=== PATIENT | male | born 1945 | race Caucasian/White ===

== ENCOUNTER 2018-03-27 18:15 | Inpatient (IN) ==
--- NOTE | 2018-03-27 18:35 | Emergency Department Note ---
Addendum entered and electronically signed by Suhail Balderrama DO 03/27/18 20:29: Posterior and stirrup splint placed of new acute subacute ankle fracture. Vascular intact. Original Note: Disposition Clinical Impression: Neuropathy Falls Qualifiers: Encounter type: initial encounter Qualified Code(s): W19.XXXA - Unspecified fall, initial encounter Ankle pain, right Qualifiers: Chronicity: acute Qualified Code(s): M25.571 - Pain in right ankle and joints of right foot Disposition: Admitted As Inpatient Condition: Fair Referrals: Trey Ricketts Jr, MD [Primary Care Provider] - Forms: ED Satisfaction Letter Time of Disposition: 20:11 General Adult HPI - General Chief complaint: ED Extremity Problem,Nontraumatic Stated complaint: Weakness Walking Time Seen by Provider: 03/27/18 18:25 Source: patient, EMS Mode of arrival: ambulatory Limitations: no limitations Nursing Notes Reviewed: Yes Vital Signs Reviewed: Yes - History of Present Illness HPI Narrative: 73-year-old male with a history of hypertension, hyper lipidemia, neuropathy pr esents for evaluation of weakness of the legs with recurrent falls. Patient presents via EMS. Patient arrives from home. EMS reported the patient's had progressive weakness of the lower extremity. Patient's had recurrent falls. Does recall a fall a month ago at [facility] where he fractured his right ankle. Patient's ankle fracture was nonoperative. Since then the patient's been having home PT as well as assistance with family nurse however the patient continues to have recurrent falls is feeling weak. Patient notes neuropathy of his lower extremities primarily distal to the ankle. Patient's also had increasing pain of the right lower extremity. Patient was given a prescription of hydrocodone by his orthopedic doctor yesterday. Patient denies any cough shortness of breath chest pain abdominal pain or nausea vomiting. Patient is on 81 aspirin. Family at bedside states that he fell twice last night. No LOC. Family states that he is continuing to decline. Patient typically ambulates with assistance of a walker. Patient also states he has a history of abdominal aneurysm is followed by vascular here. Pain Scale: 0 - Related Data Home Medications Medication Instructions Recorded Confirmed Aspirin [Lo-Dose Aspirin EC] 05/19/17 Gabapentin [Neurontin] 05/19/17 Hydrochlorothiazide 05/19/17 Klor-Con 05/19/17 Multivitamin with Minerals 05/19/17 Simvastatin [Zocor] 05/19/17 Toprol Xl 05/19/17 Previous Rx's Medication Instructions Recorded Fluticasone Propionate Nasal 120 spray NS DAILY #1 bottle 06/02/17 [Flonase] Loratadine/Pseudophed (12 HR) 1 each PO BID #20 tab.er.[id number] 06/02/17 [Claritin D (12HR)] Allergies Allergy/AdvReac Type Severity Reaction Status Date / Time TETANUS Allergy See Uncoded 06/02/17 10:00 Comments All systems ED: reviewed and negative except as stated. Constitutional: Denies: fever Cardiovascular: Denies: chest pain Respiratory: Denies: cough, dyspnea, sputum production Gastrointestinal: Denies: abdominal pain, nausea, vomiting Musculoskeletal: Denies: back pain Neurological: Reports: weakness, numbness. Denies: headache Past Medical History - Past Medical History Source: patient Medical history: Reports: hyperlipidemia, hypertension, other Surgical history: Reports: non-contributory Psychiatric history: Reports: no psych history - Social History Smoking Status: Current every day smoker Smokeless Tobacco Status: No Alcohol use: Reports: none Drug use: Reports: none Physical Exam - General Limitations: no limitations General appearance: alert, in no apparent distress - Head Head exam: atraumatic, normocephalic, normal inspection - Eye Eye exam: Present: normal appearance, PERRL, EOMI - ENT ENT exam: normal exam, normal oropharynx, mucous membranes moist - Neck Neck exam: Present: normal inspection, full ROM. Absent: trachea midline - Chest Chest inspection: Present: normal inspection, symmetric chest wall rise - Respiratory Respiratory exam: Present: normal lung sounds bilaterally - Cardiovascular Cardiovascular exam: Present: regular rate, normal rhythm. Absent: systolic murmur - Abdominal Exam Abdominal exam: Present: soft, Non-Tender - Expanded Upper Extremity Exam Shoulder exam: Present: normal inspection, full ROM. Absent: tenderness Arm exam: Present: normal inspection, full ROM. Absent: tenderness Elbow exam: Present: normal inspection, full ROM. Absent: tenderness Hand exam: Present: normal inspection Vascular exam: Normal: capillary refill, radial pulse - Expanded Lower Extremity Exam Hip/Pelvis exam: Present: normal inspection. Absent: tenderness Upper leg exam: Present: normal inspection. Absent: tenderness Knee exam: Present: normal inspection. Absent: tenderness Ankle exam: Present: tenderness, swelling, ecchymosis. Absent: deformity Foot/toe exam: Present: tenderness, swelling, ecchymosis Neurovascular/Tendon exam: Present: normal capillary refill. Absent: pulse def icit - Back Exam Back exam: Present: normal inspection. Absent: tenderness - Neurological Exam Neurological exam: Present: alert, oriented X3, CN II-XII intact - Expanded Neurological Exam Patient oriented to: Present: person, place, time Speech: Present: fluid speech Cranial nerves: EOM function (II, III, IV, ): Normal, facial sensation (V): Normal, facial palsy (VII): Normal, spinal accessory function (XI): Normal, tongue deviation (XII): Normal Motor strength - LUE: 5/5 Motor strength - RUE: 5/5 Motor strength - LLE: 5/5 Motor strength - RLE: 5/5 Sensory exam lower extremity: light touch: Abnormal Left, Abnormal Right Coma Scale Eye Opening: Spontaneous Coma Scale Motor Response: Obeys Commands Coma Scale Verbal Response: Oriented Coma Scale Total: 15 - Skin Skin exam: Present: warm, dry, intact, normal color Course Course Narrative: Patient seen and examined. Patient will get basic labs, EKG, head CT, basic imaging. Disposition pending. - Reevaluation(s) Reevaluation #1: Patient presents for concerns of weakness of the lower extremities neuropathy and recurrent falls. Patient denies any LOC. Patient's aspirin. On exam the patient's resting currently no complaints. Family is concerned because he is having recurrent falls at home. Does have home PT but states that is not improving the symptoms. Patient's states that they did call 911 the past 24 hours due to his falls. States that she can no longer help lift him after he falls. Patient does and bili with a sense of a walker but is not able to take care of his activities of daily living. Given his history is well as recurrent falls. Patient is unsafe for discharge and would best be admitted for formal PT OT evaluation and discharge planning. Patient would likely need inpatient rehabilitation services as the family feels they are having a difficult time caring for him and his current state of health. Patient did get baseline screening evaluation with a head CT which was unremarkable chest x-ray ankle x- ray. Consult was placed in the computer given the acute subacute nature the p atient's right ankle fracture. Patient's recurrent falls likely secondary to his debilitation from his ankle fracture. Time: 20:02 Reevaluation #2: Discussed the case with the patient's family who verbalized that they feel that the patient is unsafe to take care of himself at home. Family also does not feel they can take care of him at home. Time: 20:04 Vital Signs Temperature 99.4 F 03/27/18 18:17 Pulse Rate 90 03/27/18 18:17 Respiratory Rate 20 03/27/18 18:17 Blood Pressure 175/80 03/27/18 18:17 O2 Sat by Pulse Oximetry 97 03/27/18 18:17 Temperature 99.4 F 03/27/18 18:17 Pulse Rate 78 03/27/18 19:33 Respiratory Rate 20 03/27/18 19:33 Blood Pressure 147/74 03/27/18 19:33 O2 Sat by Pulse Oximetry 97 03/27/18 19:33 Oxygen Delivery Oxygen Delivery Room Air Medical Decision Making - MDM Narrative Medical decision making narrative: Patient presented for concerns of generalized lower be weakness and recurrent falls. Patient does have acute as well as subacute fracture. Patient is at risk for decompensation a recurrent falls at home. Patient will be admitted to the hospital service. Ortho consulted. Patient family are agreeable with this plan of care. - Lab Data Lab results reviewed: Yes I reviewed the patient's lab results. Result diagrams: 03/27/18 18:36 03/27/18 18:36 Lab Results 03/27/18 03/27/18 Range/Units 18:36 18:36 WBC 12.4 H (4.3-11.1) K/mcL RBC 4.31 (4.19-5.50) M/mcL Hgb 13.7 (12.9-16.9) g/dL Hct 42.0 (37.5-50.1) % MCV 97.4 (83.0-100.0) fL MCH 31.8 (28.0-33.3) pg MCHC 32.6 (31.6-35.5) g/dL RDW 13.2 (11.5-14.5) % Plt Count 202 (140-400) K/mcL MPV 10.7 (9.4-12.4) fL Immature Gran % 0.4 (0-4) % Seg Neutrophils % 69.2 % Lymphocytes % 17.3 % Monocytes % 11.0 % Eosinophils % 1.9 % Basophils % 0.2 % Neutrophils # 8.6 (1.6-8.9) K/mcL Lymphocytes # 2.1 (0.6-4.6) K/mcL Monocytes # 1.4 H (0.0-1.3) K/mcL Eosinophils # 0.2 (0.0-0.6) K/mcL Basophils # 0.0 (0.0-0.2) K/mcL Sodium 139 (136-145) mEq/L Potassium 4.1 (3.5-5.1) mEq/L Chloride 106 (98-107) mEq/L Carbon Dioxide 28 (23-29) mEq/L BUN 17 (8-23) mg/dL Creatinine 1.40 H (0.70-1.30) mg/dL Est GFR ( Amer) > 60 (> 60) Est GFR (Non-Af Amer) 50 L (> 60) BUN/Creatinine Ratio 12 (6-26) Glucose 145 H (70-105) mg/dL Calculated Osmolality 292 (280-300) Calcium 9.1 (8.6-10.3) mg/dL - Radiology Data Radiology results reviewed: Yes I reviewed the patient's radiology results. Vital Signs Temperature 99.4 F 03/27/18 18:17 Pulse Rate 90 03/27/18 18:17 Respiratory Rate 20 03/27/18 18:17 Blood Pressure 175/80 03/27/18 18:17 O2 Sat by Pulse Oximetry 97 03/27/18 18:17 Temperature 99.4 F 03/27/18 18:17 Pulse Rate 78 03/27/18 19:33 Respiratory Rate 20 03/27/18 19:33 Blood Pressure 147/74 03/27/18 19:33 O2 Sat by Pulse Oximetry 97 03/27/18 19:33 Oxygen Delivery Oxygen Delivery Room Air Chest X-Ray 03/27/18 18:30 IMPRESSION: No acute abnormality. D/ / Bony Naylor MD / Bony Naylor MD Interpreting Provider: Bony Naylor MD Ankle X-Ray 03/27/18 18:31 IMPRESSION: 1. New acute-subacute transverse medial malleolar fracture 2. Subacute oblique distal fibular fracture, similar to prior exam D/ / Bony Naylor MD / Bony Naylor MD Interpreting Provider: Bony Naylor MD Head CT 03/27/18 18:31 IMPRESSION: No acute intracranial abnormality. D/ / Bony Naylor MD / Bony Naylor MD Interpreting Provider: Bony Naylor MD - EKG Data EKG #1 EKG attestation: Yes I reviewed and interpreted this EKG. EKG shows normal: sinus rhythm Rate: normal Rhythm: NSR [place]/QRS: normal When compared to previous EKG there are: no significant changes Interpretation: no acute changes, nonspecific ST-T wave changes S.B.Lilliam - Elidia.Candido Situation: Demographics Background: Presenting Complaint Assessment: Vital Signs, Course and respsone to treatment, Patient/Family Expectation Recommendation: Barrier(s) to disposition, Recommendation based on pending studies, treatments, or consults S.B.A.RNidia Report Given to: Dr. Caden Garcia Time: 20:10
--- NOTE | 2018-03-27 18:45 | Emergency Department Note ---
Disposition Clinical Impression: Falls, Neuropathy, Ankle pain, right Disposition: Admitted As Inpatient Condition: Fair General Adult HPI - General Chief complaint: ED Extremity Problem,Nontraumatic Stated complaint: Weakness Walking Time Seen by Provider: 03/27/18 18:25 Source: patient, EMS Mode of arrival: ambulatory Limitations: no limitations - History of Present Illness Pain Scale: 0 - Related Data Home Medications Medication Instructions Recorded Confirmed RX: Aspirin [Lo-Dose Aspirin EC] 81 mg PO DAILY 05/19/17 03/27/18 RX: Gabapentin [Neurontin] 1,200 mg PO TID 05/19/17 03/27/18 RX: Simvastatin [Zocor] 80 mg PO HS 05/19/17 03/27/18 Metoprolol Succinate 50 mg PO DAILY 03/27/18 03/27/18 Potassium Chloride [K-Tab ER] 20 meq PO DAILY 03/27/18 03/27/18 RX: hydroCHLOROthiazide 25 mg PO DAILY 03/27/18 03/27/18 [Hydrochlorothiazide] Allergies Allergy/AdvReac Type Severity Reaction Status Date / Time TETANUS Allergy See Uncoded 06/02/17 10:00 Comments Constitutional: Denies: fever Cardiovascular: Denies: chest pain Respiratory: Denies: cough, dyspnea, sputum production Gastrointestinal: Denies: abdominal pain, nausea, vomiting Musculoskeletal: Denies: back pain Neurological: Reports: weakness, numbness. Denies: headache Past Medical History - Past Medical History Medical history: Reports: hyperlipidemia, hypertension, other Surgical history: Reports: non-contributory Psychiatric history: Reports: no psych history - Social History Smoking Status: Current every day smoker Smokeless Tobacco Status: No Alcohol use: Reports: none Drug use: Reports: none Physical Exam - General Limitations: no limitations General appearance: alert, in no apparent distress Course Vital Signs Temperature 99.4 F 03/27/18 18:17 Pulse Rate 90 03/27/18 18:17 Respiratory Rate 20 03/27/18 18:17 Blood Pressure 175/80 03/27/18 18:17 O2 Sat by Pulse Oximetry 97 03/27/18 18:17 Temperature 98 F 03/27/18 21:05 Pulse Rate 83 03/27/18 21:05 Respiratory Rate 16 03/27/18 21:05 Blood Pressure 142/83 03/27/18 21:05 O2 Sat by Pulse Oximetry 93 03/27/18 21:05 Oxygen Delivery Oxygen Delivery Room Air Medical Decision Making - Lab Data Result diagrams: 03/27/18 18:36 03/27/18 18:36 Lab Results 03/27/18 03/27/18 Range/Units 18:36 18:36 WBC 12.4 H (4.3-11.1) K/mcL RBC 4.31 (4.19-5.50) M/mcL Hgb 13.7 (12.9-16.9) g/dL Hct 42.0 (37.5-50.1) % MCV 97.4 (83.0-100.0) fL MCH 31.8 (28.0-33.3) pg MCHC 32.6 (31.6-35.5) g/dL RDW 13.2 (11.5-14.5) % Plt Count 202 (140-400) K/mcL MPV 10.7 (9.4-12.4) fL Immature Gran % 0.4 (0-4) % Seg Neutrophils % 69.2 % Lymphocytes % 17.3 % Monocytes % 11.0 % Eosinophils % 1.9 % Basophils % 0.2 % Neutrophils # 8.6 (1.6-8.9) K/mcL Lymphocytes # 2.1 (0.6-4.6) K/mcL Monocytes # 1.4 H (0.0-1.3) K/mcL Eosinophils # 0.2 (0.0-0.6) K/mcL Basophils # 0.0 (0.0-0.2) K/mcL Sodium 139 (136-145) mEq/L Potassium 4.1 (3.5-5.1) mEq/L Chloride 106 (98-107) mEq/L Carbon Dioxide 28 (23-29) mEq/L BUN 17 (8-23) mg/dL Creatinine 1.40 H (0.70-1.30) mg/dL Est GFR ( Amer) > 60 (> 60) Est GFR (Non-Af Amer) 50 L (> 60) BUN/Creatinine Ratio 12 (6-26) Glucose 145 H (70-105) mg/dL Calculated Osmolality 292 (280-300) Calcium 9.1 (8.6-10.3) mg/dL Attestation Statement - Attestation Attestation: I examined this patient and my medical decision-making was reviewed with the Resident Physician. I agree with the documented findings, disposition and treatment plan as described except to the extent set forth below. [id number] time provided Patient presents with fall. Unsteady on feet. He has a home therapist has been working with him. On exam the patient appears in no acute distress. Family bedside. Concern for progressive debility, falls
[2018-03-27 18:48] LABS: Basophils % 0.2 %; Eosinophils # 0.2 K/mcL (0.0-0.6); Eosinophils % 1.9 %; Hemoglobin 13.7 g/dL (12.9-16.9); Immature Granulocytes % 0.4 % (0-4); Lymphocytes # 2.1 K/mcL (0.6-4.6); Lymphocytes % 17.3 %; Mean Corpuscular HGB Conc 32.6 g/dL (31.6-35.5); Mean Corpuscular Hemoglobin 31.8 pg (28.0-33.3); Mean Corpuscular Volume 97.4 fL (83.0-100.0); Mean Platelet Volume 10.7 fL (9.4-12.4); Monocytes # 1.4 K/mcL (0.0-1.3); Neutrophils # 8.6 K/mcL (1.6-8.9); Platelet Count 202 K/mcL (140-400); Red Blood Count 4.31 M/mcL (4.19-5.50); Red Cell Distribution Width 13.2 % (11.5-14.5); Segmented Neutrophils % 69.2 %
[2018-03-27 19:10] LABS: BUN/Creatinine Ratio 12 (6-26); Blood Urea Nitrogen 17 mg/dL (8-23); Calcium 9.1 mg/dL (8.6-10.3); Carbon Dioxide 28 mEq/L (23-29); Chloride 106 mEq/L (98-107); Glucose 145 mg/dL (70-105); Osmolality,Calculated 292 (280-300); Potassium 4.1 mEq/L (3.5-5.1); Sodium 139 mEq/L (136-145); eGFR For Non-African Americans 50 (> 60)
[2018-03-27] MEDS ORDERED: traMADol 50 MG TABLET PO PRN (20:36)
[2018-03-27] MEDS ORDERED: Naloxone 0.4 MG/ML INJ IVP PRN (20:36)
[2018-03-27] MEDS ORDERED: Acetaminophen 325 MG TABLET PO PRN (20:36)
[2018-03-27] MEDS ORDERED: *HR* OxyCODONE Immed Rel 5 MG TABLET PO PRN (20:36)
[2018-03-27] MEDS ORDERED: Ipratropium/Albuterol Neb 3 ML IH PRN (20:40)
[2018-03-27] MEDS ORDERED: Ringers Solution, Lactated 1,000 ML IVC SCH (20:45)
--- NOTE | 2018-03-27 20:53 | Internal Med History&Physical ---
Date of Encounter: 03/27/18 Time of Encounter: 20:49 Internal Medicine - H&P: HPI Chief complaint: falls Admitted From: Home Plans for Post Hospital Care: Transfer Inp Rehab Fac History of present illness: Arden Tran is a 73-year-old male with chronic smoker with hypertension, hyperlipidemia and peripheral neuropathy who states that around Thanks period he had a fall while getting up from a seated position and walking to the bathroom with surrounding objects being used for support. He was taken to an urgent care center where he was found to have a distal fibular fracture. He was plugged in with orthopedics as an outpatient where he was given a walking boot and told to not bear weight. He reported difficulty using the boots and uncontrolled pain so only yesterday he was given a prescription for hydrocodone/acetaminophen. Today he is brought in again after 2 mechanical falls in the past 24 hours with no LOC. In the ER he was seen clinically and hemodynamically stable. X-rays is reviewed by me independently shows thin mu acute to subacute transverse fracture in the medial malleolus that was not seen on x-ray dated 03/19/18 and persistence of the previous oblique distal fibular fracture which remains unchanged in alignment. He is now admitted for further care. At this time he has no acute complaints. He continues to smoke and states that occasionally has difficulty with breathing out but has never been diagnosed with any obstructive lung disease. Past Med Surg Social Fam HX - Past Medical History Medical history: hyperlipidemia, hypertension, other Additional medical history: neuropathy. 3-4cm abd aneurysm that is being monitored Psychiatric history: no psych history - Past Surgical History Surgical History: non-contributory Additional surgical history: sinus surgery. inguinal hernia. bone spurs. b/l lens implant - Social History Smoking Status: Current every day smoker Smokeless Tobacco Status: No Alcohol use: none Drug use: none Internal Medicine - H&P: Meds Aspirin [Lo-Dose Aspirin EC] 81 mg PO DAILY 05/19/17 [History] Gabapentin [Neurontin] 2 tab PO TID 05/19/17 [History] Simvastatin [Zocor] 80 mg PO HS 05/19/17 [History] Metoprolol Succinate 50 mg PO DAILY 03/27/18 [History] Potassium Chloride [K-Tab ER] 20 meq PO DAILY 03/27/18 [History] hydroCHLOROthiazide [Hydrochlorothiazide] 25 mg PO DAILY 03/27/18 [History] Allergy/AdvReac Type Severity Reaction Status Date / Time TETANUS Allergy See Uncoded 06/02/17 10:00 Comments All Systems PM: A 10-system review of systems was performed and is negative for pertinent findi ngs except as documented above in the HPI. Family history reviewed and found noncontributory. - Constitutional Vitals: Temp Pulse Resp BP Pulse Ox 99.4 F 78 20 147/74 97 03/27/18 18:17 03/27/18 19:33 03/27/18 19:33 03/27/18 19:33 03/27/18 19:33 Exam: Vitals: Reviewed General: Obese white male lying comfortably in bed in no acute distress. Skin: Multiple ecchymotic lesions on forearms and lower legs. HEENT: Moist mucous membranes. No conjunctivae pallor. Neck: No lymphadenopathy. No JVD. No carotid bruits. No palpable thyroid. Chest: Normal thoracic expansion. Normal breath sounds. Clear to auscultation. Heart: Normal S1 & S2; rhythmic. No rubs or murmurs. Abdomen: Non-distended, soft and non-tender to palpation. No peritoneal reaction. Extremities: 2+ pitting edema in both lower legs/feet with the right side larger than the left. 2cm ulceration on medial malleolus with tenderness to palpation in the same area. Feet warm and pulses are present. Decreased sensation. Right leg with hyperpigmentation. Neurological: Awake, alert and oriented to person, place and time. No focal d eficits. Psych: Affect appropriate. Internal Med - H&P Results - Labs CBC & Chem 7: 03/27/18 18:36 03/27/18 18:36 Labs: Short CBC 03/27/18 Range/Units 18:36 WBC 12.4 H (4.3-11.1) K/mcL Hgb 13.7 (12.9-16.9) g/dL Hct 42.0 (37.5-50.1) % Plt Count 202 (140-400) K/mcL Neutrophils # 8.6 (1.6-8.9) K/mcL BMP 03/27/18 18:36 Sodium 139 Potassium 4.1 Chloride 106 Carbon Dioxide 28 BUN 17 Creatinine 1.40 H Glucose 145 H Calcium 9.1 - Impressions ITS Impressions Chest X-Ray 03/27/18 18:30 IMPRESSION: No acute abnormality. D/ / Bony Naylor MD / Bony Naylor MD Interpreting Provider: Bony Naylor MD Ankle X-Ray 03/27/18 18:31 IMPRESSION: 1. New acute-subacute transverse medial malleolar fracture 2. Subacute oblique distal fibular fracture, similar to prior exam D/ / Bony Naylor MD / Bony Naylor MD Interpreting Provider: oBny Naylor MD Head CT 03/27/18 18:31 IMPRESSION: No acute intracranial abnormality. D/ / Bony Naylor MD / Bony Naylor MD Interpreting Provider: Bony Naylor MD - Assessment and plan (1) Right malleolar fracture Current Visit: Yes Status: Acute Assessment and plan: Due to a more recent fall it appears. Podiatry has been consulted and he will be seen in the morning. For now leg elevation and no weight bearing. Pain control as needed. Qualifiers: Encounter type: initial encounter Fracture type: closed Qualified Code(s): S82.891A - Other fracture of right lower leg, initial encounter for closed fracture (2) Closed fibular fracture Current Visit: Yes Status: Acute Assessment and plan: Appears stable. Will need continued orthopedics follow up. Qualifiers: Encounter type: initial encounter Fibula location: distal Fracture morphology: unspecified fracture morphology Laterality: right Qualified Code(s): S82.831A - Other fracture of upper and lower end of right fibula, initial encounter for closed fracture (3) HTN (hypertension) Current Visit: Yes Status: Acute Assessment and plan: Well controlled. Will resume home meds. Qualifiers: Hypertension type: essential hypertension Qualified Code(s): I10 - Essential (primary) hypertension (4) CHRIS (acute kidney injury) Current Visit: Yes Status: Acute Assessment and plan: Unclear etiology; no report of poor oral intake or clinical signs of dehydration. Could it be associated with NSAIDs? Will fluid resuscitate to assess reponse to 1L and recheck. Avoid NSAIDs and hold diuretic for tonight. (5) Smoker Current Visit: Yes Status: Acute Assessment and plan: Counseled and educated accordingly. Nicotine patch provided. Duonebs prn ordered given longstanding history. (6) Falls Current Visit: Yes Status: Acute Assessment and plan: He will benefit from PT assessment after podiatric evaluation and may require inpatient rehabilitation. Qualifiers: Encounter type: initial encounter Qualified Code(s): W19.XXXA - Unspecified fall, initial encounter (7) Neuropathy Current Visit: Yes Status: Acute Assessment and plan: Continue gabapentin at home doses. (8) DVT prophylaxis Current Visit: Yes Status: Acute Assessment and plan: SubQ heparin ordered. - Time Spent With Patient Total time spent is greater than 50% in coordination of care (as documented) at patient's floor/unit and/or counseling patient: Greater than 35 minutes
[2018-03-27] MEDS ORDERED: Nicotine 21 MG PATCH.TD24 TD SCH (21:00)
[2018-03-27] MEDS: Gabapentin 400 MG CAPSULE PO SCH (21:18)
[2018-03-27] MEDS: *HR* Heparin 5,000 UNIT/ML VIAL SQ SCH (21:20)
[2018-03-28 04:02] LABS: Basophils % 0.2 %; Eosinophils # 0.3 K/mcL (0.0-0.6); Eosinophils % 3.6 %; Hematocrit 38.8 % (37.5-50.1); Hemoglobin 12.7 g/dL (12.9-16.9); Immature Granulocytes % 0.1 % (0-4); Lymphocytes # 2.4 K/mcL (0.6-4.6); Lymphocytes % 27.1 %; Mean Corpuscular HGB Conc 32.7 g/dL (31.6-35.5); Mean Corpuscular Hemoglobin 31.8 pg (28.0-33.3); Mean Corpuscular Volume 97.2 fL (83.0-100.0); Mean Platelet Volume 10.6 fL (9.4-12.4); Monocytes # 0.8 K/mcL (0.0-1.3); Monocytes % 9.2 %; Neutrophils # 5.3 K/mcL (1.6-8.9); Platelet Count 168 K/mcL (140-400); Red Blood Count 3.99 M/mcL (4.19-5.50); Red Cell Distribution Width 13.3 % (11.5-14.5); Segmented Neutrophils % 59.8 %
[2018-03-28 04:09] LABS: Prothrombin Time 10.9 Seconds (9.4-12.1)
[2018-03-28 04:11] LABS: Activated Partial Thrombo Time 27.6 Seconds (26.0-36.0)
[2018-03-28 04:20] LABS: Alanine Aminotransferase 12 Units/L (7-52); Albumin 3.5 g/dL (3.5-5.7); Alkaline Phosphatase 55 Units/L (34-104); Aspartate Amino Transferase 15 Units/L (13-39); BUN/Creatinine Ratio 16 (6-26); Bilirubin,Direct 0.1 mg/dL (0.0-0.2); Bilirubin,Indirect 0.4 mg/dL (0.0-1.2); Bilirubin,Total 0.5 mg/dL (0.3-1.0); Blood Urea Nitrogen 15 mg/dL (8-23); Calcium 8.5 mg/dL (8.6-10.3); Carbon Dioxide 27 mEq/L (23-29); Chloride 109 mEq/L (98-107); Glucose 112 mg/dL (70-105); Osmolality,Calculated 292 (280-300); Potassium 3.8 mEq/L (3.5-5.1); Sodium 140 mEq/L (136-145); Total Protein 5.7 g/dL (6.4-8.9); eGFR For Non-African Americans > 60 (> 60)
[2018-03-28 04:21] LABS: Albumin/Globulin Ratio 1.6 (1.1-2.2); Globulin 2.2 g/dL (2.4-3.5)
[2018-03-28] MEDS: *HR* Heparin 5,000 UNIT/ML VIAL SQ SCH ×2 (05:36→23:27)
--- NOTE | 2018-03-28 06:15 | Podiatry Consult Note ---
Date of Encounter: 03/28/18 Time of Encounter: 05:30 Assessment and Plan (1) Fracture of ankle, bimalleolar, right, closed Current visit: Yes Status: Acute patient had trouble remaining non-wb on his own. fallen multiple times. sustained new medial malleolar fracture I had a thorough review with the patient regarding his condition, my findings and treatment options. Disussed xrays. Patient is going to proceed with ORIF of the right ankle fracture. Nature of procedure, risks vs benefits, potential complications and consequences of surgery and his condition discussed at length including but not limited to infection, bleeding, swelling, numbness, tingling, nerve damage, delayed or non-healing of bone, painful hardware, lack of procedure to product desired outcome, arthritis, heart attack, blood clot, pulomonary embolism, , need for further surgery, etc. He understood that he will have arthritis and may always have swelling due to his injury. Discussed course of recovery and need to remain non-wb for 8 weeks or longer following the procedure. All of his questions were answered and the informed consent was signed. We discussed recovery and patient in agreement to try to go to [facility]. [facility] for surgery. To OR later today for ORIF of the right ankle. NPO. Qualifiers: Encounter type: initial encounter Qualified Code(s): S82.841A - Displaced bimalleolar fracture of right lower leg, initial encounter for closed fracture History of Present Illness HPI: Mr. Tran is a 73 year old male with neuropathy reports multiple falls since Thanksgiving injuring the right ankle. He says he saw Dr. Sousa on [facility] for his right ankle. He says he was put in a boot and told to stay off it to allow the fracture to heal. He says he was unable to stay off it and had a difficult time. He says he has fallen and twisted the foot multiple times. He says his right ankle is not getting any better and continues to swell. He came to the ER yesterday and was found to have a new medial malleolar fracture. He denies being diabetic. He is an active smoker. Patient admitted overnight and podiatry consulted for evaluation. Past Med Surg Social Fam HX - Past Medical History Medical history: hyperlipidemia, hypertension, other Additional medical history: neuropathy. 3-4cm abd aneurysm that is being monitored Psychiatric history: no psych history - Past Surgical History Surgical History: non-contributory Additional surgical history: sinus surgery. inguinal hernia. bone spurs. b/l lens implant - Social History Smoking Status: Current every day smoker Smokeless Tobacco Status: No Alcohol use: none Drug use: none - Family History Father Living Status: Cause of : CA Hx Family Cancer: Yes (Stomach) Sister Living Status: Cause of : "heart" Hx Family Cardiac Disorders: Yes Medications and Allergies Aspirin [Lo-Dose Aspirin EC] 81 mg PO DAILY 05/19/17 [History] Gabapentin [Neurontin] 1,200 mg PO TID 05/19/17 [History] Simvastatin [Zocor] 80 mg PO HS 05/19/17 [History] Metoprolol Succinate 50 mg PO DAILY 03/27/18 [History] Potassium Chloride [K-Tab ER] 20 meq PO DAILY 03/27/18 [History] hydroCHLOROthiazide [Hydrochlorothiazide] 25 mg PO DAILY 03/27/18 [History] Allergy/AdvReac Type Severity Reaction Status Date / Time TETANUS Allergy See Uncoded 06/02/17 10:00 Comments All Systems Reviewed: The remainder of the systems were reviewed and are negative - Constitutional Constitutional: no fever(s) - Cardiovascular Cardiovascular: no chest pain, no dyspnea - Respiratory Respiratory: no cough - Musculoskeletal Musculoskeletal: joint swelling, numbness Physical Exam - Constitutional Vitals: Temp Pulse Resp BP Pulse Ox 98.4 F 86 16 168/83 91 03/28/18 03:29 03/28/18 03:29 03/27/18 23:36 03/28/18 03:29 03/28/18 03:29 Exam: well developed and nourished male AO x 3. in no acute distress CFT intact to all digits of the right foot. right foot is warm to touch. mild edema. no fracture blisters no calf pain with squeeze b/l. no pain with palpation of fracture sites. absent sensation to touch b/l. xrays: bimalleolar ankle fracture with decreased tib-fib overlap Results - Labs Result Diagrams: 03/28/18 03:40 03/28/18 03:40 Labs: Abnormal lab results RBC 3.99 M/mcL (4.19-5.50) L 03/28/18 03:40 Hgb 12.7 g/dL (12.9-16.9) L 03/28/18 03:40 Chloride 109 mEq/L (98-107) H 03/28/18 03:40 Glucose 112 mg/dL (70-105) H 03/28/18 03:40 Calcium 8.5 mg/dL (8.6-10.3) L 03/28/18 03:40 Serum Total Protein 5.7 g/dL (6.4-8.9) L 03/28/18 03:40 Globulin 2.2 g/dL (2.4-3.5) L 03/28/18 03:40 H & H 03/27/18 03/28/18 Range/Units 18:36 03:40 Hgb 13.7 12.7 L (12.9-16.9) g/dL Hct 42.0 38.8 (37.5-50.1) % All other labs normal. Consult Discharge Plan - Plan Referrals: Trey Ricketts Jr, MD [Primary Care Provider] -
[2018-03-28] MEDS ORDERED: hydroCHLOROthiazide 25 MG TABLET PO SCH (07:00)
[2018-03-28] MEDS ORDERED: Metoprolol XL (24 HR) Succ 50 MG TAB.ER.24H PO SCH (07:00)
[2018-03-28] MEDS ORDERED: Aspirin Enteric Coated 81 MG Tablet PO SCH (09:00)
[2018-03-28] MEDS: Gabapentin 400 MG CAPSULE PO SCH ×3 (09:37→20:21)
--- NOTE | 2018-03-28 11:05 | Anesthesia Evaluation PreOp ---
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 History: Other (jennifer LE peripheral neuropathy) Other Medical History: Denies Any Significant HX Anesthesia History: No Prior Anesthetic Complications, Past Anesthesia (sinus, ing hernia repair, jennifer lens implant) Alcohol Use: none Drug use: none Medications and Allergies Aspirin [Lo-Dose Aspirin EC] 81 mg PO DAILY 05/19/17 [History] Gabapentin [Neurontin] 1,200 mg PO TID 05/19/17 [History] Simvastatin [Zocor] 80 mg PO HS 05/19/17 [History] Metoprolol Succinate 50 mg PO DAILY 03/27/18 [History] Potassium Chloride [K-Tab ER] 20 meq PO DAILY 03/27/18 [History] hydroCHLOROthiazide [Hydrochlorothiazide] 25 mg PO DAILY 03/27/18 [History] Latanoprost [Xalatan] 1 drop BOTH EYES HS 03/28/18 [History] Multivit-Minerals/FA/Lycopene [Eq One Daily Men's Tablet] 1 tab PO DAILY 03/28/18 [History] Allergy/AdvReac Type Severity Reaction Status Date / Time TETANUS Allergy See Uncoded 03/28/18 10:05 Comments - Meds/Allergy Pre-op Review Medications Reviewed: Yes Allergies Reviewed: Yes Beta Blockers on Current Med List: Yes If Beta Blockers taken, Date/Time (Last Dose taken): 7:04am today Anesthesia Results - Labs 03/28/18 03:40 03/28/18 03:40 Laboratory Tests 03/28/18 03:40 PT 10.9 INR 1.0 APTT 27.6 - Imaging EKG: image reviewed (03/28/17 SR) Anesthesia Exam Vital Signs/O2 Sat, Most Current Temp Pulse Resp BP Pulse Ox 98.4 F 80 16 178/89 91 03/28/18 10:19 03/28/18 10:19 03/28/18 10:19 03/28/18 10:19 03/28/18 10:19 Height: 1.75m Weight: 118kg NPO (# of Hours): >8 - HEENT Pupil (Motor): Pupils equal, EOMI - CHILD GUIDANCE COUNSELOR LOC: Oriented CHILD GUIDANCE COUNSELOR Motor: Normal RUE, Normal LUE, Normal RLE, Normal LLE, Normal Face CHILD GUIDANCE COUNSELOR Sensory: Normal: RUE, LUE, RLE, LLE, Face - Cardiac Rhythm: Regular - Pulmonary Breath Sounds: bilateral Clear Respiratory Effort: Symmetrical Anesthesia Assess/Plan ASA Score: 3 Level of consciousness: Cooperative Anesthetic Plan: General Reason for No Neuroaxial/Regional Block: Other (pt has jennifer LE neuropathy) Monitoring Plan: Standard Monitors Recovery Plan: PACU
[2018-03-28] MEDS ORDERED: Bupivacaine/EPI 1:200k 0.25%PF 30 ML VIAL ONE (11:38)
[2018-03-28] MEDS ORDERED: Lidocaine -MPF 2% 2 ML VIAL ONE (11:55)
[2018-03-28] MEDS ORDERED: *HR* FentaNYL (PF) 100 MCG/2 ML VIAL ONE (11:55)
[2018-03-28] MEDS ORDERED: Ondansetron 4 MG/2 ML VIAL ONE (11:55)
[2018-03-28] MEDS ORDERED: Dexamethasone 4 MG/ML VIAL ONE (11:55)
[2018-03-28] MEDS ORDERED: *HR* Propofol 200 MG/20 ML VIAL IVP ONE (11:55)
[2018-03-28] MEDS ORDERED: *HR* Midazolam HCl 2 MG/2 ML VIAL ONE (11:55)
[2018-03-28] MEDS ORDERED: *HR* Promethazine 25 MG/ML VIAL IVP PRN ×2 (12:00→14:52)
[2018-03-28] MEDS ORDERED: *HR* OxyCODONE Immed Rel 5 MG TABLET PO PRN ×2 (12:00→14:52)
[2018-03-28] MEDS ORDERED: Ondansetron 4 MG/2 ML VIAL IVP ONE (12:00)
[2018-03-28] MEDS ORDERED: *HR* Meperidine 25 MG/ML SYRINGE IVP PRN (12:00)
[2018-03-28] MEDS ORDERED: *HR* HYDROmorphone (PF) 1 MG/ML SYRINGE IVP PRN (12:00)
[2018-03-28] MEDS ORDERED: Albuterol 2.5 MG/3 ML NEBULIZER IH ONE ×3 (12:00→14:52)
[2018-03-28] MEDS ORDERED: Acetaminophen IV 1,000 MG/100 ML INFUS..BTL ONE (12:33)
[2018-03-28] MEDS ORDERED: *HR* PHENYLEPHRINE 1,000 MCG/10 ML SYRINGE IVP ONE (12:35)
[2018-03-28] MEDS ORDERED: *HR* HYDROMORPHONE 2 MG/ML VIAL ONE (13:14)
--- NOTE | 2018-03-28 13:21 | Internal Med Progress Note ---
Hospitalist Progress Note - Encounter Date of Encounter: 03/28/18 Time of Encounter: 09:00 - Subjective Interval History: Patient was seen and examined earlier this a.m. at bedside. He currently complains of some right leg pain however no other complaints - Exam Vitals: Temp Pulse Resp BP Pulse Ox 98.4 F 80 16 178/89 91 03/28/18 10:19 03/28/18 10:19 03/28/18 10:19 03/28/18 10:19 03/28/18 10:19 Exam: Vitals: Reviewed General: Obese white male lying comfortably in bed in no acute distress. Skin: Multiple ecchymotic lesions on forearms and lower legs. HEENT: Moist mucous membranes. No conjunctivae pallor. Neck: No lymphadenopathy. No JVD. No carotid bruits. No palpable thyroid. Chest: Normal thoracic expansion. Normal breath sounds. Clear to auscultation. Heart: Normal S1 & S2; rhythmic. No rubs or murmurs. Abdomen: Non-distended, soft and non-tender to palpation. No peritoneal reaction. Extremities: 2+ pitting edema in both lower legs/feet with the right side larger than the left. 2cm ulceration on medial malleolus with tenderness to palpation in the same area. Feet warm and pulses are present. Decreased sensation. Right leg with hyperpigmentation. Neurological: Awake, alert and oriented to person, place and time. No focal deficits. Psych: Affect appropriate. - Assessment and Plan (1) Falls Current Visit: Yes Status: Acute Assessment and Plan: He will benefit from PT assessment after podiatric evaluation and may require inpatient rehabilitation 03/28/2018 Patient has experienced frequent falls secondary to difficulty ambulating from previous distal fibular fracture. He was advised to be nonweightbearing however he had difficulty using a boot and experienced 2 mechanical falls-he appears to have a subacute transverse fracture in the medial malleolus. We will consult PT he will require further rehabilitation postsurgery (2) Neuropathy Current Visit: Yes Status: Acute Assessment and Plan: Continue gabapentin at home doses 03/28/2018 Continue with gabapentin PT OT consulted. (3) Right malleolar fracture Current Visit: Yes Status: Acute Assessment and Plan: Due to a more recent fall it appears. Podiatry has been consulted and he will be seen in the morning. For now leg elevation and no weight bearing. Pain control as needed. 03/28/2018 Podiatry has been consulted -patient is to undergo ORIF of right ankle later today (4) Closed fibular fracture Current Visit: Yes Status: Acute Assessment and Plan: Appears stable. Will need continued orthopedics follow up. 03/28/2018 We will require orthopedic [id number] at this time (5) HTN (hypertension) Current Visit: Yes Status: Acute Assessment and Plan: Well controlled. Will resume home meds. 03/28/2018 Patient's blood pressure has been elevated this morning he has had some pain continue with pain management as well as hydralazine as needed. Continue with home medications (6) CHRIS (acute kidney injury) Current Visit: Yes Status: Acute Assessment and Plan: Unclear etiology; no report of poor oral intake or clinical signs of dehydration. Could it be associated with NSAIDs? Will fluid resuscitate to assess reponse to 1L and recheck. Avoid NSAIDs and hold diuretic for tonight. 03/28/2018 This seems to have resolved we will continue to monitor closely (7) Smoker Current Visit: Yes Status: Acute Assessment and Plan: Counseled and educated accordingly. Nicotine patch provided. Duonebs prn ordered given longstanding history. (8) DVT prophylaxis Current Visit: Yes Status: Acute Assessment and Plan: SubQ heparin ordered. - Time Spent with Patient Total time spent is greater than 50% in coordination of care (as documented) at patient's floor/unit and/or counseling patient: Internal Medicine: Result - Labs CBC & Chem 7: 03/28/18 03:40 03/28/18 03:40 Labs: Short CBC 03/27/18 03/28/18 Range/Units 18:36 03:40 WBC 12.4 H 8.8 (4.3-11.1) K/mcL Hgb 13.7 12.7 L (12.9-16.9) g/dL Hct 42.0 38.8 (37.5-50.1) % Plt Count 202 168 (140-400) K/mcL Neutrophils # 8.6 5.3 (1.6-8.9) K/mcL BMP 03/27/18 03/28/18 18:36 03:40 Sodium 139 140 Potassium 4.1 3.8 Chloride 106 109 H Carbon Dioxide 28 27 BUN 17 15 Creatinine 1.40 H 0.93 Glucose 145 H 112 H Calcium 9.1 8.5 L Liver Function 03/28/18 Range/Units 03:40 Total Bilirubin 0.5 (0.3-1.0) mg/dL Direct Bilirubin 0.1 (0.0-0.2) mg/dL AST 15 (13-39) Units/L ALT 12 (7-52) Units/L Alkaline Phosphatase 55 (34-104) Units/L Albumin 3.5 (3.5-5.7) g/dL - ABG Interpretation ABG results: PT/INR, D-dimer PT 10.9 Seconds (9.4-12.1) 03/28/18 03:40 - Impressions Impressions Chest X-Ray 03/27/18 18:30 IMPRESSION: No acute abnormality. D/ / Bony Naylor MD / Bony Naylor MD Interpreting Provider: Bony Naylor MD Ankle X-Ray 03/27/18 18:31 IMPRESSION: 1. New acute-subacute transverse medial malleolar fracture 2. Subacute oblique distal fibular fracture, similar to prior exam D/ / Bony Naylor MD / Bony Naylor MD Interpreting Provider: Bony Naylor MD Head CT 03/27/18 18:31 IMPRESSION: No acute intracranial abnormality. D/ / Bony Naylor MD / Bony Naylor MD Interpreting Provider: Bony Naylor MD Consult Discharge Plan - Plan Referrals: Trey Ricketts Jr, MD [Primary Care Provider] - (1) Falls Qualifiers: Encounter type: initial encounter Qualified Code(s): W19.XXXA - Unspecified fall, initial encounter (3) Right malleolar fracture Qualifiers: Encounter type: initial encounter Fracture type: closed Qualified Code(s): S82.891A - Other fracture of right lower leg, initial encounter for closed fracture (4) Closed fibular fracture Qualifiers: Encounter type: initial encounter Fibula location: distal Fracture morphology: unspecified fracture morphology Laterality: right Qualified Co de(s): S82.831A - Other fracture of upper and lower end of right fibula, initial encounter for closed fracture (5) HTN (hypertension) Qualifiers: Hypertension type: essential hypertension Qualified Code(s): I10 - Essential (primary) hypertension
--- NOTE | 2018-03-28 14:02 | Operative Note ---
Date of procedure: 03/28/18 Pre-op diagnosis: right bimalleolar ankle fracture Post-op diagnosis: same Procedure: ORIF right bimalleolar ankle fracture ORIF syndesmosis Implants: [id number] ankle fracture locking plate with locking and non-locking screws, 3.5mm cortical lag screw, 3.0mm partially threaded co-lag screws x 2 Complications: none Anesthesia: GETA Local Anesthetics: 0.25% Sensorcaine HCL with Epinephrine 1:200,000 SubQ (cc) Surgeon: Shine Mejia Was there an mortgage loan assistant present: No Estimated blood loss (cc): 20 Specimen: none Condition: stable Disposition: PACU Procedure in Detail: Indications: 73-year-old male who sustained a right ankle fracture and subsequently admitted when he further injured the right ankle with another fall. Patient had the nature of the procedure ORIF of the right ankle discussed at length preoperatively. Risks versus benefits potential complications and consequences of the procedure discussed with the patient at length. Patient understood that he will have arthritis of the ankle due to the nature of his injury. No guarantees were made as to the outcome. It was explained Patient was given a popliteal block preoperatively by anesthesia. Following induction of general anesthesia via LMA, the right lower extremity was scrubbed prepped and draped in the usual sterile fashion and a thigh tourniquet inflated to 300 mmHg and the following procedures began. ORIF right ankle fracture and syndesmosis. Attention was directed to the lateral aspect of the patients right ankle where a #15 blade was used to make an incision which was approximately 7 cm in length. Skin incision was deepened through sharp and blunt dissection care was taken to avoid neurovascular tendinous structures. All traversing veins were divided ligated and retracted. Once down to the level of the periosteum, it was incised and soft tissue reflected from the fibula exposing the fracture zone. The hematoma from the fracture site was evacuated bone curette used to freshen and reduction clamp used to hold the fracture in reduced position. C-arm was used to confirm that the fibula was out to length and reduction of the fracture was achieved. Next using standard technique an [id number] 3.5 mm cortical screw was thrown across the fracture site and excellent compression was noted clinically. Next an [id number] locking plate was applied to the lateral aspect of the patients right fibula and filled with 3.5 mm locking and nonlocking screws proximally and distally. The cotton hook test was performed and the syndesmosis was felt to have increased motion. The reduction clamp was applied ankle held in a reduced position and medial clear space was within normal limits and tib-fib overlap was present. With the ankle held in a neutral position a 3.5 mm nonlocking screws was thrown across the syndesmosis through the plate. C-arm was used to confirm position and alignment of the fracture which was reduced and the ankle joint. Attention was then directed medially where an incision approximately 2.5cm in length was made over the medial malleolus. The fracture site was then reapproximated and held with a reduction clamp. Two [id number] partially threaded screws were thrown across the fracture zone and excellent compression was noted across the fracture zone. C-arm was used to confirm good reduction of the fracture zones and the alignment of the talus in the ankle mortise. The surgical site was flushed with copious amounts of normal sterile saline. Deep and subcutaneous tissues were closed with 2-0 Vicryl and the skin was reapproximated with naresh laterally and a combination of naresh and 3-0 nylon medially. The postoperative bandaging included Xeroform, 4 x 4 gauze, Kerlix and the patient was placed in an adequately padded posterior splint Importance of strict nonweightbearing had been discussed with the patient. The patient tolerated the anesthesia and the procedure well and was escorted the recovery room with vital signs stable and vascular status intact to the right lower extremity noted by instant capillary refill time to all digits of the right foot. Patient taken to recovery room and will return to the floor.
[2018-03-28] MEDS ORDERED: Ringers Solution, Lactated 1,000 ML ONE (14:19)
--- NOTE | 2018-03-28 14:51 | Anesthesia Evaluation Post Op ---
Date of Encounter: 03/28/18 Time of Encounter: 14:40 - Vital Signs Vital Signs: Vital Signs/O2 Sat/Glucose, Most Recent Temp Pulse Resp BP Pulse Ox 99.2 F 79 16 155/77 96 03/28/18 14:44 03/28/18 14:44 03/28/18 14:44 03/28/18 14:44 03/28/18 14:44 - Lungs Lungs: Clear Ascult./Percussion - Airway Airway: Non-obstructed - Cardiovascular Regular Rate - Mental Status Mental Status: Alert & Oriented, Answers Appropriately - Pain Pain Scale: 0 Pain Scale used: Numeric (1 - 10) - Nausea Vomiting Nausea Vomiting: Not Present - Hydration Hydration: Ice chips, Has not voided - Discharge PostOp Status: Transfer Patient to floor
[2018-03-28] MEDS ORDERED: Ipratropium/Albuterol Neb 3 ML IH PRN (14:52)
[2018-03-28] MEDS ORDERED: Acetaminophen 325 MG TABLET PO PRN (14:52)
[2018-03-28] MEDS ORDERED: traMADol 50 MG TABLET PO PRN (14:52)
[2018-03-28] MEDS ORDERED: Naloxone 0.4 MG/ML INJ IVP PRN (14:52)
--- NOTE | 2018-03-28 15:23 | Electrocardiograph Report ---
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
--- NOTE | 2018-03-28 15:34 | Electrocardiograph Report ---
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
[2018-03-28] MEDS ORDERED: Nicotine 21 MG PATCH.TD24 TD SCH (21:00)
[2018-03-29] MEDS: *HR* Heparin 5,000 UNIT/ML VIAL SQ SCH ×2 (06:05→15:17)
[2018-03-29] MEDS: Gabapentin 400 MG CAPSULE PO SCH ×2 (08:00→15:18)
--- NOTE | 2018-03-29 08:00 | Podiatry Progress Note ---
Date of Encounter: 03/29/18 Time of Encounter: 07:30 - Assessment and Plan (1) Fracture of ankle, bimalleolar, right, closed Current Visit: Yes Status: Acute discussed surgical procedure with patient and family as well as course of recovery. they shown xray images of his procedure. remain non-wb to the right lower extremity. f/u PT/OT. c/w post-op ancef doses. consult social work for ECF placement. will need DVT ppx continued upon discharge with heparin, lovenox or low dose xarelto. will need f/u in a week after discharge with me. Qualifiers: Encounter type: initial encounter Qualified Code(s): S82.841A - Displaced bimalleolar fracture of right lower leg, initial encounter for closed fracture Subjective Interval history: 1 day s/p right ankle ORIF. denies problems overnight. Denies feeling like he experienced f/c/n/v/sob/cp/calf pain. says his pain is controlled. Objective - Vital Signs Vital Signs: Vital Signs Temp Pulse Resp BP Pulse Ox 03/29/18 06:40 98.6 F 83 16 178/77 95 03/29/18 04:09 97.8 F 85 18 142/81 95 03/28/18 23:11 97.9 F 80 16 151/74 97 03/28/18 20:20 96 03/28/18 18:40 97.8 F 81 15 157/86 96 03/28/18 17:57 83 18 170/82 94 03/28/18 17:28 98.3 F 65 18 128/77 95 03/28/18 17:05 98.4 F 75 18 143/71 96 03/28/18 15:35 97.9 F 66 18 148/81 95 03/28/18 15:22 95 03/28/18 15:05 97.6 F 72 18 162/84 93 03/28/18 14:44 99.2 F 79 16 155/77 96 03/28/18 14:34 78 16 171/82 96 03/28/18 14:24 71 14 109/55 99 03/28/18 14:14 100 F H 68 12 111/53 98 03/28/18 12:11 18 95 03/28/18 10:19 98.4 F 80 16 178/89 91 03/28/18 09:38 185/83 Intake and Output 03/28/18 03/28/18 03/29/18 15:59 23:59 07:59 Intake Total 240 / 240 100 / 100 Output Total 870 / 870 625 / 625 250 / 250 Balance -870 / -870 -385 / -385 -150 / -150 Intake: IV Fluids 100 / 100 Ancef 2,000 MG In 0.9 % Sodium 100 / 100 Chloride 100 ML @ 200 mls/hr IVPB Q8HR SOLIS Rx#:[id number] Oral 240 / 240 Output: Urine 850 / 850 625 / 625 250 / 250 Estimated Blood Loss Other: Meal NPO Dinner Percent of Meal Consumed 95% # Voids 2 Weight 118.1 kg - Exam Exam: posterior splint clean, dry and intact. No strikethrough. no calf pain with squeeze. can flex and extend digits of the right foot. absent sensation. - Lab Result Diagrams: 03/28/18 03:40 03/28/18 03:40 Labs: Abnormal lab results RBC 3.99 M/mcL (4.19-5.50) L 03/28/18 03:40 Hgb 12.7 g/dL (12.9-16.9) L 03/28/18 03:40 Chloride 109 mEq/L (98-107) H 03/28/18 03:40 Glucose 112 mg/dL (70-105) H 03/28/18 03:40 Calcium 8.5 mg/dL (8.6-10.3) L 03/28/18 03:40 Serum Total Protein 5.7 g/dL (6.4-8.9) L 03/28/18 03:40 Globulin 2.2 g/dL (2.4-3.5) L 03/28/18 03:40 Consult Discharge Plan - Plan Referrals: Trey Ricketts Jr, MD [Primary Care Provider] -
[2018-03-29] MEDS ORDERED: Metoprolol XL (24 HR) Succ 50 MG TAB.ER.24H PO SCH (09:00)
[2018-03-29] MEDS ORDERED: Aspirin Enteric Coated 81 MG Tablet PO SCH (09:00)
[2018-03-29] MEDS ORDERED: hydroCHLOROthiazide 25 MG TABLET PO SCH (09:00)
--- NOTE | 2018-03-29 14:24 | Discharge Summary ---
<Lachelle Garza - Last Filed: 03/29/18 15:52> - NOTES TO OUTPATIENT PROVIDER Notes to Outpatient Provider: Mr. Tran presented to the ED due to a recent fall. X-ray of his right ankle showed subacute transverse fracture medial malleolus. Diet she was consulted he underwent surgical intervention. He will be transferred to extended care facility for rehabilitation. Be discharge with one month of DVT prophylaxis. Needs to follow outpatient with podiatry 1 week. Date of Encounter: 03/29/18 Time of Encounter: 09:20 - Discharge Diagnosis (1) Right malleolar fracture Priority: Primary Status: Acute Qualifiers: Encounter type: initial encounter Fracture type: closed Qualified Code(s): S82.891A - Other fracture of right lower leg, initial encounter for closed fracture (2) Falls Priority: Secondary Status: Acute Qualifiers: Encounter type: initial encounter Qualified Code(s): W19.XXXA - Unspecified fall, initial encounter (3) Neuropathy Priority: Secondary Status: Acute (4) Closed fibular fracture Priority: Secondary Status: Acute Qualifiers: Encounter type: initial encounter Fibula location: distal Fracture morphology: unspecified fracture morphology Laterality: right Qualified Code(s): S82.831A - Other fracture of upper and lower end of right fibula, initial encounter for closed fracture (5) HTN (hypertension) Priority: Secondary Status: Acute Qualifiers: Hypertension type: essential hypertension Qualified Code(s): I10 - Essential (primary) hypertension (6) CHRIS (acute kidney injury) Priority: Secondary Status: Acute (7) Smoker Priority: Secondary Status: Acute (8) DVT prophylaxis Priority: Secondary Status: Acute Hospital course: Mr. Tran is a 73-year-old male with past medical history of hypertension, hyperlipidemia and peripheral neuropathy. Presented to the ED to mechanical falls. Denied any loss of consciousness or hitting his head. He had recently fallen right after Thanksgiving and had sustained a distal fibular fracture for which she was wearing an orthopedic walking boot. The ED he was hemodynamically stable. CT of the head did not show any acute changes. In the ED his right ankl e x-ray showed subacute transverse fracture in the medial malleolus. Podiatry was consulted. He underwent ankle surgery requiring nonlocking screws. He is recommended to have rehabilitation at extended care facility. He will be discharged with DVT prophylaxis with subcutaneous heparin and will require that for 1 month. He is to follow-up with podiatry in 1 week. Discharge discussed with: patient - Time Spent with Patient Total time spent providing and/or coordinating discharge services: - Discharge Medications Prescriptions: OxyCODONE Immed Rel [Roxicodone 5 MG] 5 mg PO Q6HR PRN 4 Days #4 tablet PRN Reason: Analgesia Home Medications: Aspirin [Lo-Dose Aspirin EC] 81 mg PO DAILY 05/19/17 [History] Gabapentin [Neurontin] 1,200 mg PO TID 05/19/17 [History] Simvastatin [Zocor] 80 mg PO HS 05/19/17 [History] Metoprolol Succinate 50 mg PO DAILY 03/27/18 [History] Potassium Chloride [K-Tab ER] 20 meq PO DAILY 03/27/18 [History] hydroCHLOROthiazide [Hydrochlorothiazide] 25 mg PO DAILY 03/27/18 [History] Latanoprost [Xalatan] 1 drop BOTH EYES HS 03/28/18 [History] Multivit-Minerals/FA/Lycopene [Eq One Daily Men's Tablet] 1 tab PO DAILY 03/28/18 [History] Heparin 5,000 unit SQ Q8HCO 30 Days vial 03/29/18 [Rx] Nicotine Patch [Nicoderm] 21 mg TD HS patch.td24 03/29/18 [Rx] OxyCODONE Immed Rel [Roxicodone 5 MG] 5 mg PO Q6HR PRN 4 Days #4 tablet 03/29/18 [Rx] Allergies/Adverse Reactions: Allergy/AdvReac Type Severity Reaction Status Date / Time TETANUS Allergy See Uncoded 03/28/18 10:05 Comments Date of admission: 03/28/18 13:45 Primary care physician: Trey Ricketts Jr, MD Consults: 03/27/18 20:33 Consult to Podiatry [CONS] Routine Consulting Provider: [facility] Reason for Consult: New medial malleolar fracutre Time Notified: 20:34 Call Completed: Yes 03/28/18 14:06 Consult to Physical Therapy [CONS] Routine Comment: Evaluate, develop and implement POC Reason for Consult: non-weight bearing right lower extremity Does patient have active BEDREST order?: Yes Is patient medically & hemodynamically stable?: Yes 03/28/18 14:07 Consult to Occupational Therapy [CONS] Routine Comment: Evaluate, develop and implement POC Reason for Consult: rehab Does patient have active BEDREST order?: No Is patient medically & hemodynamically stable?: Yes 03/29/18 11:13 Consult to Inter Com Installer [CONS] Routine Reason for SW Consult: discharge planning Discharging clinician: Lachelle Garza Anticipated date of discharge: 03/29/18 - Constitutional Vitals: Temp Pulse Resp BP Pulse Ox 98.1 F 87 16 164/79 96 03/29/18 09:55 03/29/18 09:55 03/29/18 09:55 03/29/18 09:55 03/29/18 09:55 General appearance: Present: A&O X 3, pleasant, no acute distress Exam: General: Obese white male lying comfortably in bed in no acute distress. Skin: Multiple ecchymotic lesions on forearms and lower legs. HEENT: Moist mucous membranes. No conjunctivae pallor. Neck: No lymphadenopathy. No JVD. No carotid bruits. No palpable thyroid. Chest: Normal thoracic expansion. Normal breath sounds. Clear to auscultation. Heart: Normal S1 & S2; rhythmic. No rubs or murmurs. Abdomen: Non-distended, soft and non-tender to palpation. No peritoneal reaction. Extremities: 1+ pitting edema in both lower legs/feet with the right side larger than the left. Right leg in dressing Neurological: Awake, alert and oriented to person, place and time. No focal deficits. Psych: Affect appropriate. - Head Head exam: Present: atraumatic, normocephalic - Eye Eye exam: Present: EOMI, normal appearance, sclera anicteric - ENT ENT exam: Present: mucous membranes moist, normal exam - Respiratory Respiratory exam: Present: CTAB. Absent: rhonchi, stridor, wheezes - Cardiovascular Cardiovascular exam: Present: RRR, +S1, +S2. Absent: clicks - GI/Abdominal GI/Abdominal exam: Present: soft. Absent: firm, rebound, rigid - Extremities Exam Extremities exam: Absent: pedal edema Additional comments: right leg in dressing - Psychiatric Psychiatric exam: Present: normal affect, normal mood - Skin Skin exam: Present: dry, intact, warm - Patient Status Disposition: Transfer SNF Condition: Fair Overall status at discharge: patient is progressing back to baseline - Discharge Instructions Follow Up With: Shine Mejia DPM [Partnered Physician] - 04/06/18 10:50 am Trey Ricketts Jr, MD [Primary Care Provider] - - Diet and Activity Activity: as per physical therapy Diet: low fat, low cholesterol <[email or web address] [email or web address] - Last Filed: 03/29/18 19:41> Date of Encounter: 03/29/18 - Discharge Diagnosis (1) Falls Status: Acute Qualifiers: Encounter type: initial encounter Qualified Code(s): W19.XXXA - Unspecified fall, initial encounter (2) Neuropathy Status: Acute (3) Right malleolar fracture Status: Acute Qualifiers: Encounter type: initial encounter Fracture type: closed Qualified Code(s): S82.891A - Other fracture of right lower leg, initial encounter for closed fracture (4) Closed fibular fracture Status: Acute Qualifiers: Encounter type: initial encounter Fibula location: distal Fracture morphology: unspecified fracture morphology Laterality: right Qualified Code(s): S82.831A - Other fracture of upper and lower end of right fibula, initial encounter for closed fracture (5) HTN (hypertension) Status: Acute Qualifiers: Hypertension type: essential hypertension Qualified Code(s): I10 - Essential (primary) hypertension (6) CHRIS (acute kidney injury) Status: Acute (7) Smoker Status: Acute (8) DVT prophylaxis Status: Acute Hospital course: Mr. Tran is a 73 year old male - Time Spent with Patient Total time spent providing and/or coordinating discharge services: Date of admission: 03/28/18 13:45 Primary care physician: Trey Ricketts Jr, MD Consults: 03/27/18 20:33 Consult to Podiatry [CONS] Routine Consulting Provider: [facility] Reason for Consult: New medial malleolar fracutre Time Notified: 20:34 Call Completed: Yes 03/28/18 14:06 Consult to Physical Therapy [CONS] Routine Comment: Evaluate, develop and implement POC Reason for Consult: non-weight bearing right lower extremity Does patient have active BEDREST order?: Yes Is patient medically & hemodynamically stable?: Yes 03/28/18 14:07 Consult to Occupational Therapy [CONS] Routine Comment: Evaluate, develop and implement POC Reason for Consult: rehab Does patient have active BEDREST order?: No Is patient medically & hemodynamically stable?: Yes 03/29/18 11:13 Consult to Inter Com Installer [CONS] Routine Reason for SW Consult: discharge planning - Constitutional Vitals: Temp Pulse Resp BP Pulse Ox 98.7 F 87 18 145/78 93 03/29/18 18:00 03/29/18 15:18 03/29/18 15:18 03/29/18 15:18 03/29/18 15:18 - Attending Attestation I examined this patient and my medical decision-making was reviewed with the Resident Physician. I agree with the documented findings, disposition and treatment plan as described except to the extent set forth below.
[2018-03-29 15:22] VITALS: BP 145/78
--- NOTE | 2018-03-29 15:57 | Physician Discharge Referral ---
ExtendedCare Referral Info Transfer To: ECF Provider in Charge after Transfer: Other Institutional Level of Care: Skilled - Diagnosis (1) Right malleolar fracture Priority: Primary Status: Acute (2) Falls Priority: Secondary Status: Acute (3) Neuropathy Priority: Secondary Status: Acute (4) Closed fibular fracture Priority: Secondary Status: Acute (5) HTN (hypertension) Priority: Secondary Status: Acute (6) CHRIS (acute kidney injury) Priority: Secondary Status: Acute (7) Smoker Priority: Secondary Status: Acute (8) DVT prophylaxis Priority: Secondary Status: Acute - Transfer Medications Home Medications: Aspirin [Lo-Dose Aspirin EC] 81 mg PO DAILY 05/19/17 [History] Gabapentin [Neurontin] 1,200 mg PO TID 05/19/17 [History] Simvastatin [Zocor] 80 mg PO HS 05/19/17 [History] Metoprolol Succinate 50 mg PO DAILY 03/27/18 [History] Potassium Chloride [K-Tab ER] 20 meq PO DAILY 03/27/18 [History] hydroCHLOROthiazide [Hydrochlorothiazide] 25 mg PO DAILY 03/27/18 [History] Latanoprost [Xalatan] 1 drop BOTH EYES HS 03/28/18 [History] Multivit-Minerals/FA/Lycopene [Eq One Daily Men's Tablet] 1 tab PO DAILY 03/28/18 [History] Heparin 5,000 unit SQ Q8HCO 30 Days vial 03/29/18 [Rx] Nicotine Patch [Nicoderm] 21 mg TD HS patch.td24 03/29/18 [Rx] OxyCODONE Immed Rel [Roxicodone 5 MG] 10 mg PO Q6HR PRN 1 Days #4 tablet 03/29/18 [Rx] Allergies/Adverse Reactions: Allergy/AdvReac Type Severity Reaction Status Date / Time TETANUS Allergy See Uncoded 03/28/18 10:05 Comments - Respiratory Orders Smoking Cessation: Smoking cessation has been advised. For more information, call the [place] Tobacco Quit Line at 6-653-SSRK-NOW. CERTIFICATION: I certify that the transfer of the above named patient to an Extended Care Facility is necessary for the continuing treatment of the diagnosis listed. The above information is true and accurate reflection of patient's current condition. Confidential - Redisclosure prohibited without a patient's written consent.
== END 2018-03-29 19:48 | DRG 493 ==
LOC: EMEROOARM 18:15 → 3BNU 18:15 → SUATTDRO 03-28 13:45 → 3NENU 03-28 15:12
PROVIDERS: ADMIT Internal Medicine; ATTEND Student in an Organized Health Care Education/Training Program

== ENCOUNTER 2020-12-26 13:45 | Observation (INO) ==
[2020-12-26 16:01] LABS: Basophils % 0.2 %; Eosinophils % 0.6 %; Hematocrit 35.5 % (37.5-50.1); Hemoglobin 10.3 g/dL (12.9-16.9); Immature Granulocytes % 0.3 % (0-4); Lymphocytes # 1.3 K/mcL (0.6-4.6); Lymphocytes % 20.5 %; Mean Corpuscular Hemoglobin 36.8 pg (28.0-33.3); Mean Corpuscular Volume 126.8 fL (83.0-100.0); Mean Platelet Volume 10.5 fL (9.4-12.4); Monocytes # 0.4 K/mcL (0.0-1.3); Monocytes % 5.5 %; Neutrophils # 4.7 K/mcL (1.6-8.9); Platelet Count 187 K/mcL (140-400); Red Cell Distribution Width 13.3 % (11.5-14.5); Segmented Neutrophils % 72.9 %; White Blood Count 6.5 K/mcL (4.3-11.1)
[2020-12-26 16:02] LABS: Macrocytosis Present (Not Present)
[2020-12-26 16:06] LABS: Adenovirus Not Detected (Not Detect); Bordetella Pertussis Not Detected (Not Detect); Chlamydophila pneumoniae Not Detected (Not Detect); Coronavirus 229E Not Detected (Not Detect); Coronavirus HKU1 Not Detected (Not Detect); Coronavirus NL63 Not Detected (Not Detect); Coronavirus OC43 Not Detected (Not Detect); Human Metapneumovirus Not Detected (Not Detect); Human Rhinovirus/Enterovirus Not Detected (Not Detect); Influenza A Subtype 2009 H1 Not Detected (Not Detect); Influenza B Not Detected (Not Detect); Mycoplasma pneumoniae Not Detected (Not Detect); Parainfluenza Virus 1 Not Detected (Not Detect); Parainfluenza Virus 2 Not Detected (Not Detect); Parainfluenza Virus 3 Not Detected (Not Detect); Parainfluenza Virus 4 Not Detected (Not Detect); Respiratory Syncytial Virus Not Detected (Not Detect); SARS-CoV-2 Not Detected (Not Detect)
[2020-12-26] MEDS ORDERED: 0.9 % Sodium Chloride 1,000 ML ONE ×2 (16:21→16:22)
[2020-12-26 16:22] LABS: BUN/Creatinine Ratio 27 (6-26); Blood Urea Nitrogen 19 mg/dL (8-23); C-Reactive Protein 9 mg/L (Less than 10); Calcium 8.1 mg/dL (8.6-10.3); Carbon Dioxide 33 mEq/L (23-29); Chloride 103 mEq/L (98-107); Glucose 88 mg/dL (70-105); Osmolality,Calculated 294 (280-300); Potassium 4.2 mEq/L (3.5-5.1); Sodium 141 mEq/L (136-145); eGFR For African Americans > 60 (> 60); eGFR For Non-African Americans > 60 (> 60)
[2020-12-26 16:26] LABS: Troponin I 0.05 ng/mL (< 0.04)
[2020-12-26] MEDS ORDERED: Aspirin 81 MG TAB.CHEW PO STA (17:05)
[2020-12-26] MEDS ORDERED: Furosemide 40 MG in 0.9 % Sodium Chloride 50 ML IVPB ONE (17:05)
[2020-12-26 17:34] LABS: Alanine Aminotransferase 10 Units/L (7-52); Albumin/Globulin Ratio 1.3 (1.1-2.2); Alkaline Phosphatase 61 Units/L (34-104); Aspartate Amino Transferase 18 Units/L (13-39); Bilirubin,Direct 0.4 mg/dL (0.0-0.2); Bilirubin,Total 1.4 mg/dL (0.3-1.0); Globulin 2.4 g/dL (2.4-3.5); Total Protein 5.4 g/dL (6.4-8.9)
[2020-12-26] MEDS ORDERED: Melatonin 3 MG TABLET PO PRN (18:34)
[2020-12-26] MEDS ORDERED: Naloxone 0.4 MG/ML INJ IVP PRN (18:34)
[2020-12-26] MEDS ORDERED: Perflutren Lipid Microsphere 1.3 ML in 0.9 % Sodium Chloride 8.7 ML IVP PRN (19:59)
[2020-12-26] MEDS ORDERED: Albumin 25% 25gram/100mL 25 GM/100 ML IV.SOLN IVPB ONE (20:29)
[2020-12-27] MEDS: *HR* Heparin 5,000 UNIT/ML VIAL SQ SCH ×2 (05:44→18:28)
[2020-12-27 06:04] LABS: Hematocrit 31.3 % (37.5-50.1); Hemoglobin 9.1 g/dL (12.9-16.9); Mean Corpuscular HGB Conc 29.1 g/dL (31.6-35.5); Mean Corpuscular Hemoglobin 36.4 pg (28.0-33.3); Mean Corpuscular Volume 125.2 fL (83.0-100.0); Mean Platelet Volume 10.4 fL (9.4-12.4); Platelet Count 157 K/mcL (140-400); Red Cell Distribution Width 13.2 % (11.5-14.5); White Blood Count 6.1 K/mcL (4.3-11.1)
[2020-12-27 06:19] LABS: BUN/Creatinine Ratio 27 (6-26); Blood Urea Nitrogen 19 mg/dL (8-23); Carbon Dioxide 37 mEq/L (23-29); Chloride 102 mEq/L (98-107); Glucose 85 mg/dL (70-105); Magnesium 2.2 mg/dL (1.6-2.6); Osmolality,Calculated 294 (280-300); Potassium 3.9 mEq/L (3.5-5.1); Sodium 141 mEq/L (136-145); eGFR For African Americans > 60 (> 60); eGFR For Non-African Americans > 60 (> 60)
[2020-12-27 06:44] LABS: Folate 18.3 ng/mL (3.0-16.0)
[2020-12-27] MEDS: Aspirin Enteric Coated 81 MG Tablet PO SCH (08:44)
[2020-12-27] MEDS: Furosemide 40 MG/4 ML VIAL IVP SCH (08:44)
[2020-12-27] MEDS: Latanoprost 2.5 ML BOTTLE BOTH EYES SCH (20:20)
[2020-12-28 04:16] LABS: Hemoglobin 8.9 g/dL (12.9-16.9); Mean Corpuscular Volume 123.6 fL (83.0-100.0)
[2020-12-28 04:17] LABS: Hematocrit 30.4 % (37.5-50.1); Mean Corpuscular HGB Conc 29.3 g/dL (31.6-35.5); Mean Corpuscular Hemoglobin 36.2 pg (28.0-33.3); Mean Platelet Volume 10.5 fL (9.4-12.4); Platelet Count 165 K/mcL (140-400); Red Blood Count 2.46 M/mcL (4.19-5.50); Red Cell Distribution Width 12.9 % (11.5-14.5)
[2020-12-28 04:33] LABS: BUN/Creatinine Ratio 31 (6-26); Blood Urea Nitrogen 21 mg/dL (8-23); Carbon Dioxide 37 mEq/L (23-29); Chloride 102 mEq/L (98-107); Glucose 94 mg/dL (70-105); Magnesium 2.1 mg/dL (1.6-2.6); Osmolality,Calculated 297 (280-300); Phosphorous 3.5 mg/dL (2.7-4.5); Potassium 3.4 mEq/L (3.5-5.1); Sodium 142 mEq/L (136-145); eGFR For African Americans > 60 (> 60); eGFR For Non-African Americans > 60 (> 60)
[2020-12-28] MEDS: *HR* Heparin 5,000 UNIT/ML VIAL SQ SCH ×2 (06:06→17:52)
[2020-12-28] MEDS: Aspirin Enteric Coated 81 MG Tablet PO SCH (09:55)
[2020-12-28] MEDS: Metoprolol XL (24 HR) Succ 50 MG TAB.ER.24H PO SCH ×2 (09:55→10:09)
[2020-12-28] MEDS: Furosemide 40 MG/4 ML VIAL IVP SCH ×2 (09:55→10:08)
[2020-12-28] MEDS: Latanoprost 2.5 ML BOTTLE BOTH EYES SCH (21:37)
[2020-12-29] MEDS: *HR* Heparin 5,000 UNIT/ML VIAL SQ SCH ×2 (05:59→18:36)
[2020-12-29 08:36] LABS: Eosinophils % 0.3 %; Red Cell Distribution Width 12.8 % (11.5-14.5)
[2020-12-29 08:38] LABS: Hematocrit 31.3 % (37.5-50.1); Hemoglobin 9.2 g/dL (12.9-16.9); Immature Granulocytes % 0.3 % (0-4); Lymphocytes % 31.2 %; Mean Corpuscular HGB Conc 29.4 g/dL (31.6-35.5); Mean Corpuscular Hemoglobin 36.2 pg (28.0-33.3); Mean Corpuscular Volume 123.2 fL (83.0-100.0); Mean Platelet Volume 10.2 fL (9.4-12.4); Monocytes # 0.4 K/mcL (0.0-1.3); Monocytes % 5.7 %; Platelet Count 171 K/mcL (140-400); Red Blood Count 2.54 M/mcL (4.19-5.50); Segmented Neutrophils % 62.5 %; White Blood Count 6.4 K/mcL (4.3-11.1)
[2020-12-29 09:09] LABS: Macrocytosis Present (Not Present); Platelet Estimate Normal (Normal)
[2020-12-29 09:13] LABS: Reactive Lymphocytes Present (Not Present)
[2020-12-29] MEDS: Metoprolol XL (24 HR) Succ 50 MG TAB.ER.24H PO SCH (09:38)
[2020-12-29] MEDS: Aspirin Enteric Coated 81 MG Tablet PO SCH (09:38)
[2020-12-29] MEDS: Furosemide 40 MG/4 ML VIAL IVP SCH (12:30)
[2020-12-29] MEDS: Latanoprost 2.5 ML BOTTLE BOTH EYES SCH (19:45)
[2020-12-30] MEDS: *HR* Heparin 5,000 UNIT/ML VIAL SQ SCH (05:45)
[2020-12-30 06:19] VITALS: TEMP 97.5
[2020-12-30] MEDS: Metoprolol XL (24 HR) Succ 50 MG TAB.ER.24H PO SCH (08:22)
[2020-12-30] MEDS: Furosemide 40 MG/4 ML VIAL IVP SCH (08:22)
[2020-12-30] MEDS: Aspirin Enteric Coated 81 MG Tablet PO SCH (08:22)
[2020-12-30 10:05] VITALS: BP 114/68; PULSE 72
[2020-12-30 12:05] VITALS: O2SAT 96
[2020-12-30 13:42] LABS: Basophils % 0.3 %; Eosinophils % 0.3 %; Hematocrit 32.8 % (37.5-50.1); Hemoglobin 9.5 g/dL (12.9-16.9); Immature Granulocytes % 0.3 % (0-4); Lymphocytes # 1.9 K/mcL (0.6-4.6); Lymphocytes % 29.4 %; Mean Corpuscular Hemoglobin 35.2 pg (28.0-33.3); Mean Corpuscular Volume 121.5 fL (83.0-100.0); Mean Platelet Volume 10.4 fL (9.4-12.4); Monocytes # 0.3 K/mcL (0.0-1.3); Monocytes % 5.1 %; Neutrophils # 4.1 K/mcL (1.6-8.9); Platelet Count 179 K/mcL (140-400); Red Cell Distribution Width 12.3 % (11.5-14.5); Segmented Neutrophils % 64.6 %; White Blood Count 6.3 K/mcL (4.3-11.1)
[2020-12-30 14:03] LABS: BUN/Creatinine Ratio 30 (6-26); Blood Urea Nitrogen 17 mg/dL (8-23); Calcium 8.4 mg/dL (8.6-10.3); Carbon Dioxide 38 mEq/L (23-29); Chloride 102 mEq/L (98-107); Glucose 93 mg/dL (70-105); Osmolality,Calculated 295 (280-300); Potassium 3.6 mEq/L (3.5-5.1); Sodium 142 mEq/L (136-145); eGFR For African Americans > 60 (> 60); eGFR For Non-African Americans > 60 (> 60)
[2020-12-30 14:06] LABS: Macrocytosis Present (Not Present); Platelet Estimate Normal (Normal)
[2020-12-30 14:07] LABS: Reactive Lymphocytes Present (Not Present)
== END 2020-12-30 15:25 | disposition home health service (06) ==
LOC: 3ANU 13:45 → EMEROOARM 13:45 → 3ANU 19:50
PROVIDERS: ADMIT Student in an Organized Health Care Education/Training Program; ATTEND Student in an Organized Health Care Education/Training Program

== ENCOUNTER 2021-02-02 15:36 | Inpatient (IN) ==
[2021-02-02 16:51] LABS: Basophils % 0.1 %; Eosinophils % 0.1 %; Hematocrit 21.8 % (37.5-50.1); Hemoglobin 6.3 g/dL (12.9-16.9); Immature Granulocytes % 0.4 % (0-4); Lymphocytes # 1.8 K/mcL (0.6-4.6); Lymphocytes % 10.3 %; Mean Corpuscular HGB Conc 28.9 g/dL (31.6-35.5); Mean Corpuscular Hemoglobin 32.8 pg (28.0-33.3); Mean Platelet Volume 10.1 fL (9.4-12.4); Monocytes # 0.9 K/mcL (0.0-1.3); Monocytes % 5.3 %; Neutrophils # 14.3 K/mcL (1.6-8.9); Platelet Count 424 K/mcL (140-400); Red Blood Count 1.92 M/mcL (4.19-5.50); Red Cell Distribution Width 14.7 % (11.5-14.5); Segmented Neutrophils % 83.8 %
[2021-02-02 16:52] LABS: Mean Corpuscular Volume 113.5 fL (83.0-100.0)
[2021-02-02 17:16] LABS: BUN/Creatinine Ratio 37 (6-26); Blood Urea Nitrogen 41 mg/dL (8-23); Calcium 7.9 mg/dL (8.6-10.3); Carbon Dioxide 35 mEq/L (23-29); Chloride 102 mEq/L (98-107); Glucose 121 mg/dL (70-105); Osmolality,Calculated 303 (280-300); Potassium 3.4 mEq/L (3.5-5.1); Sodium 141 mEq/L (136-145); eGFR For African Americans > 60 (> 60); eGFR For Non-African Americans > 60 (> 60)
[2021-02-02] MEDS ORDERED: Vancomycin 1,250 MG/262.5 ML IV.SOLN IVPB ONE (17:19)
[2021-02-02 17:22] LABS: Hypochromasia Present (Not Present)
[2021-02-02] MEDS ORDERED: Cefepime HCl 2,000 MG in Water for inj. (sterile) 20 ML IVP ONE (17:30)
[2021-02-02 17:52] LABS: Amorphous Sediment,Urine Few per hpf (None-Few); Bacteria,Urine Few per hpf (None-Few); Bilirubin,Urine Negative (Negative); Blood,Urine Large (Negative); Clarity,Urine Ex.Turbid (Clear); Color,Urine Yellow (Yellow); Glucose,Urine (UA) Normal (Normal); Ketones,Urine Negative (Negative); Leukocyte Esterase,Urine Large (Negative); Mucus,Urine Few per lpf (None-Few); Nitrite,Urine Negative (Negative); Protein,Urine 100 mg/dL (Neg-Trace); RBC,Urine 15-30 per hpf (0-3); Urobilinogen,Urine Normal (Normal); WBC,Urine TNTC per hpf (0-3)
[2021-02-02 19:20] LABS: INR 1.2; Prothrombin Time 13.2 Seconds (9.4-12.1)
[2021-02-02 19:23] LABS: Activated Partial Thrombo Time 27.5 Seconds (26.0-36.0)
[2021-02-02 19:35] LABS: Albumin 2.4 g/dL (3.5-5.7); Albumin/Globulin Ratio 0.7 (1.1-2.2); Bilirubin,Direct 0.4 mg/dL (0.0-0.2); Bilirubin,Indirect 0.6 mg/dL (0.0-1.0); Globulin 3.3 g/dL (2.4-3.5); Total Protein 5.7 g/dL (6.4-8.9)
[2021-02-02] MEDS ORDERED: 0.9 % Sodium Chloride 1,000 ML IV ONE (19:54)
[2021-02-02 21:26] LABS: Phosphorous 3.5 mg/dL (2.7-4.5)
[2021-02-02] MEDS ORDERED: Amiodarone 150 MG in D5% in Water 100 ML IVPB ONE (21:37)
[2021-02-02] MEDS ORDERED: Amiodarone Premix 150 MG/100 ML BAG IVPB ONE (21:42)
[2021-02-02] MEDS ORDERED: Amiodarone Premix 360 MG/200 ML BAG IVC ONE (21:42)
[2021-02-02] MEDS ORDERED: 0.9 % Sodium Chloride 250 ML ONE (22:13)
[2021-02-03] MEDS ORDERED: Naloxone 0.4 MG/ML INJ IVP PRN (00:09)
[2021-02-03] MEDS ORDERED: Gadolinium Contrast Agent (WT Based) IV PRN (01:13)
[2021-02-03] MEDS ORDERED: Perflutren Lipid Microsphere 1.3 ML in 0.9 % Sodium Chloride 8.7 ML IVP PRN (01:28)
[2021-02-03] MEDS: Amiodarone Premix 360 MG/200 ML BAG IVC SCH ×2 (04:29→16:14)
[2021-02-03 04:37] LABS: BUN/Creatinine Ratio 35 (6-26); Blood Urea Nitrogen 38 mg/dL (8-23); Calcium 7.4 mg/dL (8.6-10.3); Carbon Dioxide 32 mEq/L (23-29); Chloride 100 mEq/L (98-107); Glucose 143 mg/dL (70-105); Osmolality,Calculated 292 (280-300); Potassium 2.9 mEq/L (3.5-5.1); Sodium 135 mEq/L (136-145); eGFR For African Americans > 60 (> 60); eGFR For Non-African Americans > 60 (> 60)
[2021-02-03 04:38] LABS: Basophils % 0.1 %; Eosinophils % 0.2 %; Hematocrit 24.4 % (37.5-50.1); Hemoglobin 7.4 g/dL (12.9-16.9); Immature Granulocytes % 0.4 % (0-4); Lymphocytes # 1.8 K/mcL (0.6-4.6); Lymphocytes % 13.9 %; Mean Corpuscular HGB Conc 30.3 g/dL (31.6-35.5); Mean Corpuscular Hemoglobin 31.9 pg (28.0-33.3); Mean Platelet Volume 10.3 fL (9.4-12.4); Monocytes % 7.7 %; Neutrophils # 10.2 K/mcL (1.6-8.9); Platelet Count 356 K/mcL (140-400); Red Blood Count 2.32 M/mcL (4.19-5.50); Red Cell Distribution Width 20.6 % (11.5-14.5); Segmented Neutrophils % 77.7 %; White Blood Count 13.1 K/mcL (4.3-11.1)
[2021-02-03 04:41] LABS: Mean Corpuscular Volume 105.2 fL (83.0-100.0)
[2021-02-03] MEDS: Cefepime HCl 2,000 MG in Water for inj. (sterile) 20 ML IVP SCH ×2 (07:35→16:29)
[2021-02-03] MEDS ORDERED: Potassium Effervescent 25 MEQ TABLET.EFF PO ONE ×2 (09:24→11:23)
[2021-02-03] MEDS: Cefepime HCl 2,000 MG in 0.9 % Sodium Chloride Mini Bag 100 ML IVPB SCH (16:32)
[2021-02-03] MEDS ORDERED: Vancomycin 1,250 MG/262.5 ML IV.SOLN IVPB SCH (19:00)
[2021-02-03] MEDS ORDERED: Vancomycin 1,500 MG/265 ML IV.SOLN IVPB SCH (19:00)
[2021-02-03] MEDS: Gabapentin 400 MG CAPSULE PO SCH (21:48)
[2021-02-03] MEDS: Latanoprost 2.5 ML BOTTLE BOTH EYES SCH (21:53)
[2021-02-04] MEDS: Amiodarone Premix 360 MG/200 ML BAG IVC SCH ×2 (02:37→17:33)
[2021-02-04 02:59] LABS: Basophils % 0.1 %; Eosinophils % 0.3 %; Hematocrit 22.5 % (37.5-50.1); Hemoglobin 6.6 g/dL (12.9-16.9); Immature Granulocytes % 0.3 % (0-4); Lymphocytes # 2.1 K/mcL (0.6-4.6); Lymphocytes % 17.1 %; Mean Corpuscular HGB Conc 29.3 g/dL (31.6-35.5); Mean Corpuscular Hemoglobin 31.3 pg (28.0-33.3); Mean Corpuscular Volume 106.6 fL (83.0-100.0); Mean Platelet Volume 10.4 fL (9.4-12.4); Monocytes # 0.8 K/mcL (0.0-1.3); Monocytes % 6.7 %; Neutrophils # 9.2 K/mcL (1.6-8.9); Platelet Count 307 K/mcL (140-400); Red Blood Count 2.11 M/mcL (4.19-5.50); Red Cell Distribution Width 18.9 % (11.5-14.5); Segmented Neutrophils % 75.5 %; White Blood Count 12.1 K/mcL (4.3-11.1)
[2021-02-04 03:30] LABS: BUN/Creatinine Ratio 32 (6-26); Blood Urea Nitrogen 33 mg/dL (8-23); Calcium 7.3 mg/dL (8.6-10.3); Carbon Dioxide 32 mEq/L (23-29); Chloride 103 mEq/L (98-107); Glucose 106 mg/dL (70-105); Osmolality,Calculated 296 (280-300); Sodium 139 mEq/L (136-145); eGFR For African Americans > 60 (> 60); eGFR For Non-African Americans > 60 (> 60)
[2021-02-04] MEDS: Cefepime HCl 2,000 MG in 0.9 % Sodium Chloride Mini Bag 100 ML IVPB SCH ×2 (05:56→17:26)
[2021-02-04] MEDS: Metoprolol XL (24 HR) Succ 50 MG TAB.ER.24H PO SCH (08:32)
[2021-02-04] MEDS: Gabapentin 400 MG CAPSULE PO SCH ×3 (08:33→22:02)
[2021-02-04] MEDS: hydroCHLOROthiazide 25 MG TABLET PO SCH (08:33)
[2021-02-04] MEDS: Furosemide 20 MG TABLET PO SCH (08:33)
[2021-02-04] MEDS ORDERED: 0.9 % Sodium Chloride 250 ML IVC SCH (10:45)
[2021-02-04] MEDS ORDERED: Vancomycin 1,250 MG/262.5 ML IV.SOLN IVPB SCH (22:00)
[2021-02-04] MEDS: Latanoprost 2.5 ML BOTTLE BOTH EYES SCH (22:02)
[2021-02-05] MEDS ORDERED: Vancomycin 1,250 MG/262.5 ML IV.SOLN IVPB SCH
[2021-02-05 01:51] LABS: Basophils % 0.1 %; Eosinophils # 0.1 K/mcL (0.0-0.6); Eosinophils % 0.7 %; Hematocrit 28.1 % (37.5-50.1); Immature Granulocytes % 0.4 % (0-4); Lymphocytes # 2.5 K/mcL (0.6-4.6); Lymphocytes % 14.7 %; Mean Corpuscular HGB Conc 29.9 g/dL (31.6-35.5); Mean Corpuscular Hemoglobin 32.1 pg (28.0-33.3); Mean Corpuscular Volume 107.3 fL (83.0-100.0); Monocytes # 1.2 K/mcL (0.0-1.3); Monocytes % 7.1 %; Platelet Count 373 K/mcL (140-400); Red Blood Count 2.62 M/mcL (4.19-5.50); Red Cell Distribution Width 18.5 % (11.5-14.5); White Blood Count 16.8 K/mcL (4.3-11.1)
[2021-02-05 01:52] LABS: Hemoglobin 8.4 g/dL (12.9-16.9)
[2021-02-05 02:07] LABS: BUN/Creatinine Ratio 34 (6-26); Blood Urea Nitrogen 35 mg/dL (8-23); Calcium 7.7 mg/dL (8.6-10.3); Carbon Dioxide 34 mEq/L (23-29); Chloride 103 mEq/L (98-107); Glucose 155 mg/dL (70-105); Osmolality,Calculated 301 (280-300); Potassium 4.6 mEq/L (3.5-5.1); Sodium 140 mEq/L (136-145); eGFR For African Americans > 60 (> 60); eGFR For Non-African Americans > 60 (> 60)
[2021-02-05] MEDS: Amiodarone Premix 360 MG/200 ML BAG IVC SCH (02:07)
[2021-02-05] MEDS: Vancomycin 1,250 MG/262.5 ML IV.SOLN IVPB SCH (02:56)
[2021-02-05] MEDS: Cefepime HCl 2,000 MG in 0.9 % Sodium Chloride Mini Bag 100 ML IVPB SCH ×2 (05:10→17:01)
[2021-02-05] MEDS: Metoprolol XL (24 HR) Succ 50 MG TAB.ER.24H PO SCH (08:19)
[2021-02-05] MEDS: Gabapentin 400 MG CAPSULE PO SCH ×3 (08:19→22:45)
[2021-02-05] MEDS: Furosemide 20 MG TABLET PO SCH (08:19)
[2021-02-05] MEDS: hydroCHLOROthiazide 25 MG TABLET PO SCH (08:19)
[2021-02-05 13:07] LABS: ABG Base Excess 7 mEq/L (-2 to 3); ABG HCO3 36 mEq/L (21-27); ABG Oxygen Saturation 93 % (95-98); ABG PCO2 79 mmHg (35-45); ABG PH 7.26 pH Units (7.32-7.45); ABG PO2 82 mmHg (85-104); ABG TCO2 38 mEq/L (20-26)
[2021-02-05] MEDS: *HR* Amiodarone 200 MG TABLET PO SCH (17:01)
[2021-02-05] MEDS ORDERED: GADOBUTROL 30 MMOL/30 ML VIAL IVP ONE (17:40)
[2021-02-05] MEDS: Latanoprost 2.5 ML BOTTLE BOTH EYES SCH (22:49)
[2021-02-06 02:54] LABS: Basophils % 0.1 %; Eosinophils % 0.7 %; Immature Granulocytes % 0.4 % (0-4); Monocytes % 6.5 %
[2021-02-06 02:55] LABS: Eosinophils # 0.1 K/mcL (0.0-0.6); Hematocrit 28.8 % (37.5-50.1); Hemoglobin 8.2 g/dL (12.9-16.9); Lymphocytes # 1.8 K/mcL (0.6-4.6); Lymphocytes % 13.7 %; Mean Corpuscular HGB Conc 28.5 g/dL (31.6-35.5); Mean Corpuscular Hemoglobin 31.5 pg (28.0-33.3); Mean Corpuscular Volume 110.8 fL (83.0-100.0); Mean Platelet Volume 10.1 fL (9.4-12.4); Monocytes # 0.9 K/mcL (0.0-1.3); Neutrophils # 10.5 K/mcL (1.6-8.9); Platelet Count 309 K/mcL (140-400); Red Cell Distribution Width 16.7 % (11.5-14.5); Segmented Neutrophils % 78.6 %; White Blood Count 13.4 K/mcL (4.3-11.1)
[2021-02-06 03:08] LABS: BUN/Creatinine Ratio 38 (6-26); Blood Urea Nitrogen 40 mg/dL (8-23); Calcium 7.9 mg/dL (8.6-10.3); Carbon Dioxide 36 mEq/L (23-29); Chloride 104 mEq/L (98-107); Glucose 120 mg/dL (70-105); Osmolality,Calculated 303 (280-300); Sodium 141 mEq/L (136-145); eGFR For African Americans > 60 (> 60); eGFR For Non-African Americans > 60 (> 60)
[2021-02-06 03:14] LABS: Platelet Estimate Normal (Normal); Polychromasia 1+ (Not Present)
[2021-02-06] MEDS: Vancomycin 1,250 MG/262.5 ML IV.SOLN IVPB SCH (04:36)
[2021-02-06] MEDS: Cefepime HCl 2,000 MG in 0.9 % Sodium Chloride Mini Bag 100 ML IVPB SCH ×2 (06:39→16:17)
[2021-02-06 10:47] LABS: ABG Base Excess 7 mEq/L (-2 to 3); ABG HCO3 34 mEq/L (21-27); ABG Oxygen Saturation 84 % (95-98); ABG PCO2 63 mmHg (35-45); ABG PH 7.35 pH Units (7.32-7.45); ABG PO2 53 mmHg (85-104); ABG TCO2 36 mEq/L (20-26)
[2021-02-06] MEDS: hydroCHLOROthiazide 25 MG TABLET PO SCH (14:29)
[2021-02-06] MEDS: *HR* Amiodarone 200 MG TABLET PO SCH (14:29)
[2021-02-06] MEDS: Gabapentin 400 MG CAPSULE PO SCH ×3 (14:30→20:40)
[2021-02-06] MEDS: Furosemide 20 MG TABLET PO SCH (14:30)
[2021-02-06] MEDS: Metoprolol XL (24 HR) Succ 50 MG TAB.ER.24H PO SCH (14:31)
[2021-02-06] MEDS: Latanoprost 2.5 ML BOTTLE BOTH EYES SCH (20:40)
[2021-02-06] MEDS ORDERED: Isovue-370 500 ML BOTTLE IVP ONE (21:17)
[2021-02-07] MEDS ORDERED: Furosemide 20 MG/2 ML VIAL IVP ONE (00:39)
[2021-02-07] MEDS ORDERED: *HR* Dextrose 50 % in Water (Syg) 50 ML SYRINGE IVP PRN (01:19)
[2021-02-07] MEDS ORDERED: D5% in Water 1,000 ML IVC PRN (01:19)
[2021-02-07] MEDS ORDERED: Dextrose Gel 15 GM/37.5 ML TUBE PO PRN ×2 (01:19)
[2021-02-07] MEDS: Vancomycin 1,250 MG/262.5 ML IV.SOLN IVPB SCH (03:01)
[2021-02-07] MEDS: Amiodarone Premix 360 MG/200 ML BAG IVC SCH (03:08)
[2021-02-07] MEDS: Cefepime HCl 2,000 MG in 0.9 % Sodium Chloride Mini Bag 100 ML IVPB SCH ×2 (05:37→19:21)
[2021-02-07 10:19] LABS: BUN/Creatinine Ratio 40 (6-26); Blood Urea Nitrogen 44 mg/dL (8-23); Carbon Dioxide 32 mEq/L (23-29); Chloride 108 mEq/L (98-107); Glucose 95 mg/dL (70-105); Osmolality,Calculated 309 (280-300); Potassium 4.7 mEq/L (3.5-5.1); Sodium 144 mEq/L (136-145); eGFR For African Americans > 60 (> 60); eGFR For Non-African Americans > 60 (> 60)
[2021-02-07] MEDS: *HR* Amiodarone 200 MG TABLET PO SCH (12:49)
[2021-02-07] MEDS: hydroCHLOROthiazide 25 MG TABLET PO SCH (12:49)
[2021-02-07] MEDS: Gabapentin 400 MG CAPSULE PO SCH ×3 (12:50→19:19)
[2021-02-07] MEDS: Metoprolol XL (24 HR) Succ 50 MG TAB.ER.24H PO SCH (12:50)
[2021-02-07] MEDS: Furosemide 20 MG TABLET PO SCH (12:50)
[2021-02-07 14:02] LABS: Basophils % 0.3 %; Eosinophils # 0.1 K/mcL (0.0-0.6); Eosinophils % 0.5 %; Hematocrit 31.2 % (37.5-50.1); Immature Granulocytes % 0.5 % (0-4); Lymphocytes # 2.2 K/mcL (0.6-4.6); Lymphocytes % 22.5 %; Mean Corpuscular HGB Conc 27.9 g/dL (31.6-35.5); Mean Corpuscular Hemoglobin 31.9 pg (28.0-33.3); Mean Platelet Volume 10.7 fL (9.4-12.4); Monocytes # 0.8 K/mcL (0.0-1.3); Monocytes % 7.9 %; Neutrophils # 6.6 K/mcL (1.6-8.9); Platelet Count 252 K/mcL (140-400); Red Blood Count 2.73 M/mcL (4.19-5.50); Red Cell Distribution Width 15.9 % (11.5-14.5); Segmented Neutrophils % 68.3 %; White Blood Count 9.7 K/mcL (4.3-11.1)
[2021-02-07 14:03] LABS: Hemoglobin 8.7 g/dL (12.9-16.9); Mean Corpuscular Volume 114.3 fL (83.0-100.0)
[2021-02-07 14:09] LABS: Anisocytosis 1+ (Not Present); Hypochromasia Present (Not Present); Macrocytosis Present (Not Present); Platelet Estimate Normal (Normal)
[2021-02-07] MEDS: Latanoprost 2.5 ML BOTTLE BOTH EYES SCH (20:01)
[2021-02-08] MEDS: Vancomycin 1,250 MG/262.5 ML IV.SOLN IVPB SCH (02:59)
[2021-02-08] MEDS: Amiodarone Premix 360 MG/200 ML BAG IVC SCH (03:06)
[2021-02-08] MEDS: Cefepime HCl 2,000 MG in 0.9 % Sodium Chloride Mini Bag 100 ML IVPB SCH (04:44)
[2021-02-08] MEDS: hydroCHLOROthiazide 25 MG TABLET PO SCH (07:35)
[2021-02-08] MEDS: *HR* Amiodarone 200 MG TABLET PO SCH (07:35)
[2021-02-08] MEDS: Metoprolol XL (24 HR) Succ 50 MG TAB.ER.24H PO SCH (07:36)
[2021-02-08] MEDS: Gabapentin 400 MG CAPSULE PO SCH ×3 (07:36→21:15)
[2021-02-08] MEDS: Furosemide 20 MG TABLET PO SCH (07:36)
[2021-02-08 11:13] LABS: Basophils % 0.1 %; Eosinophils # 0.1 K/mcL (0.0-0.6); Eosinophils % 1.3 %; Hematocrit 25.9 % (37.5-50.1); Hemoglobin 7.5 g/dL (12.9-16.9); Immature Granulocytes % 0.4 % (0-4); Lymphocytes # 1.5 K/mcL (0.6-4.6); Lymphocytes % 15.9 %; Mean Corpuscular Hemoglobin 31.5 pg (28.0-33.3); Mean Corpuscular Volume 108.8 fL (83.0-100.0); Mean Platelet Volume 10.5 fL (9.4-12.4); Monocytes # 0.6 K/mcL (0.0-1.3); Neutrophils # 7.2 K/mcL (1.6-8.9); Platelet Count 342 K/mcL (140-400); Red Blood Count 2.38 M/mcL (4.19-5.50); Red Cell Distribution Width 15.6 % (11.5-14.5); Segmented Neutrophils % 76.3 %; White Blood Count 9.4 K/mcL (4.3-11.1)
[2021-02-08 11:27] LABS: BUN/Creatinine Ratio 38 (6-26); Blood Urea Nitrogen 38 mg/dL (8-23); Calcium 8.4 mg/dL (8.6-10.3); Carbon Dioxide 31 mEq/L (23-29); Chloride 107 mEq/L (98-107); Glucose 76 mg/dL (70-105); Osmolality,Calculated 310 (280-300); Potassium 3.3 mEq/L (3.5-5.1); Sodium 146 mEq/L (136-145); eGFR For African Americans > 60 (> 60); eGFR For Non-African Americans > 60 (> 60)
[2021-02-08] MEDS ORDERED: *HR* LORazepam 2 MG/ML VIAL IVP PRN (20:47)
[2021-02-08] MEDS: Latanoprost 2.5 ML BOTTLE BOTH EYES SCH (21:14)
[2021-02-08] MEDS: Morphine Sulfate Oral CONC 10 MG/0.5 ML ORAL.SYG SL PRN (21:14)
[2021-02-09] MEDS: Gabapentin 400 MG CAPSULE PO SCH ×3 (08:16→21:39)
[2021-02-09] MEDS: Morphine Sulfate Oral CONC 10 MG/0.5 ML ORAL.SYG SL PRN ×2 (12:59→17:49)
[2021-02-10] MEDS: Latanoprost 2.5 ML BOTTLE BOTH EYES SCH ×2 (00:55→21:00)
[2021-02-10] MEDS: Morphine Sulfate Oral CONC 10 MG/0.5 ML ORAL.SYG SL PRN ×4 (00:55→22:03)
[2021-02-10] MEDS: Gabapentin 400 MG CAPSULE PO SCH ×3 (08:52→20:59)
[2021-02-11] MEDS: Morphine Sulfate Oral CONC 10 MG/0.5 ML ORAL.SYG SL PRN ×2 (03:59→10:00)
[2021-02-11 07:32] VITALS: BP 119/69; PULSE 93; TEMP 99.1; O2SAT 90
[2021-02-11] MEDS: Gabapentin 400 MG CAPSULE PO SCH (10:00)
== END 2021-02-11 10:38 | disposition hospice, inpatient (51) | DRG 871 ==
LOC: 2ANU 15:36 → EMEROOARM 15:36 → SUATTDRO 20:16 → 3NENU 22:22 → SUATTDRO 02-04 19:21 → 2ANU 02-10 20:00
PROVIDERS: ADMIT Internal Medicine; ATTEND General Practice

== ENCOUNTER 2021-02-10 10:12 | Inpatient (IN) ==
[2021-02-10] MEDS ORDERED: Bisacodyl 10 MG RECTAL SUPPOSITORY RC PRN (10:39)
[2021-02-11] MEDS: Morphine Sulfate Oral CONC 10 MG/0.5 ML ORAL.SYG PO PRN ×2 (15:30→21:39)
[2021-02-11] MEDS: Latanoprost 2.5 ML BOTTLE BOTH EYES SCH (21:37)
[2021-02-12] MEDS: Morphine Sulfate Oral CONC 10 MG/0.5 ML ORAL.SYG PO PRN ×2 (05:09→20:27)
[2021-02-12] MEDS: Latanoprost 2.5 ML BOTTLE BOTH EYES SCH (21:16)
[2021-02-13] MEDS: Morphine Sulfate Oral CONC 10 MG/0.5 ML ORAL.SYG PO PRN ×7 (00:29→23:40)
[2021-02-13] MEDS: *HR* LORazepam Oral Conc 2 MG/ML PO PRN ×4 (00:29→19:54)
[2021-02-13] MEDS: Atropine 1% Opth Drops 100 DROP/5 ML BOTTLE SL PRN ×3 (02:19→13:24)
[2021-02-13] MEDS: Haloperidol Oral Conc 10 MG/5 ML UDC PO PRN (03:36)
[2021-02-13] MEDS: Acetaminophen 650 MG RECTAL SUPP RC PRN (12:30)
[2021-02-13] MEDS: Latanoprost 2.5 ML BOTTLE BOTH EYES SCH (19:54)
[2021-02-14] MEDS: *HR* LORazepam Oral Conc 2 MG/ML PO PRN ×5 (03:44→21:09)
[2021-02-14] MEDS: Morphine Sulfate Oral CONC 10 MG/0.5 ML ORAL.SYG PO PRN ×5 (03:44→21:10)
[2021-02-14] MEDS: Acetaminophen 650 MG RECTAL SUPP RC PRN (05:08)
[2021-02-14] MEDS: Atropine 1% Opth Drops 100 DROP/5 ML BOTTLE SL PRN ×5 (06:40→21:12)
[2021-02-14] MEDS ORDERED: Scopolamine Patch 1.5 MG PATCH.TD72 TD SCH (11:45)
[2021-02-14] MEDS: Latanoprost 2.5 ML BOTTLE BOTH EYES SCH (20:57)
[2021-02-15] MEDS: Morphine Sulfate Oral CONC 10 MG/0.5 ML ORAL.SYG PO PRN ×10 (01:55→23:14)
[2021-02-15] MEDS: *HR* LORazepam Oral Conc 2 MG/ML PO PRN ×7 (01:55→23:13)
[2021-02-15] MEDS: Atropine 1% Opth Drops 100 DROP/5 ML BOTTLE SL PRN (09:11)
[2021-02-15] MEDS: Haloperidol Oral Conc 10 MG/5 ML UDC PO PRN ×2 (10:12→23:48)
[2021-02-15] MEDS ORDERED: Morphine Sulfate 2 MG/ML SYRINGE IVP PRN (10:42)
[2021-02-15] MEDS: Latanoprost 2.5 ML BOTTLE BOTH EYES SCH (19:21)
[2021-02-15 19:34] VITALS: BP 69/43; PULSE 127; TEMP 102.6; O2SAT 52
[2021-02-16] MEDS: Morphine Sulfate Oral CONC 10 MG/0.5 ML ORAL.SYG PO PRN (00:13)
== END 2021-02-16 04:15 | disposition expired | DRG 951 ==
LOC: 2ANU 02-11 10:40
PROVIDERS: ADMIT Internal Medicine Hospice and Palliative Medicine; ATTEND Internal Medicine Hospice and Palliative Medicine